=== PATIENT | male | born 1960 | race Caucasian/White ===

== ENCOUNTER 2017-05-08 17:55 | Emergency (ER) | payer SELFPAY ==
[~2017-05-08] VITALS: Ht 177.8 cm; Wt 52.0 kg
[2017-05-08 18:00] VITALS: BP 120/75; PULSE 65; RESP 15; TEMP 98.4; O2SAT 95
--- NOTE | 2017-05-08 18:46 | PD ---
HPI . possible skin infection Chief Complaint: Skin Problem Time Seen by Provider: 18:46 Travel History International Travel<30 days: No Contact w/Intl Traveler<30days: No Traveled to known affect area: No History of Present Illness HPI 56-year-old male here with complaints of a possible skin infection to his right lower extremity. Patient says that he started off with a cut on his right hand that seems to be healing, however now he thinks that it's spreading to his lower extremities. He is homeless. He denies any fever or chills. He has no other complaints. He says that he has some older lady who was helping him clean these wounds daily. PFSH Past Medical History Asthma: No Cancer: No Cardiovascular Problems: Yes (CATH) Chest Pain: Yes COPD: No Cerebrovascular Accident: No Endocrine: No Genitourinary: No Immune Disorder: No Musculoskeletal: No Neurologic: No Psychiatric: No Reproductive: No Respiratory: No Migraines: No Seizures: No Sleep Apnea: No Past Surgical History Abdominal Surgery: No Cardiac Surgery: Yes (heart cath ) Ear Surgery: No Endocrine Surgery: No Eye Surgery: Yes (cataracts ) Genitourinary Surgery: No Gynecologic Surgery: No Oral Surgery: No Thoracic Surgery: No Other Surgery: Yes Social History Alcohol Use: Yes Tobacco Use: Yes Substance Use: Yes (ALCOHOL) Allergies-Medications (Allergen,Severity, Reaction): Coded Allergies: No Known Allergies (Unverified , 05/24/16) Reported Meds & Prescriptions Reported Meds & Active Scripts Active Bactrim DS (Sulfamethoxazole-Trimethoprim) 800-160 Mg Tab 1 Tab PO BID Review of Systems General / Constitutional: No: Fever Eyes: No: Visual changes HENT: No: Headaches Cardiovascular: No: Chest Pain or Discomfort Respiratory: No: Shortness of Breath Gastrointestinal: No: Abdominal Pain Genitourinary: No: Dysuria Musculoskeletal: No: Pain Skin: Positive Other (skin infection ), No Rash Neurologic: No: Weakness Psychiatric: No: Depression Endocrine: No: Polydipsia Hematologic/Lymphatic: No: Easy Bruising Physical Exam Narrative GENERAL: AAO x 3, disheveled appearance SKIN: Warm and dry. No visible rashes or bruising. right lateral leg with small 1 cm circular lesion with mild erythema, no drainage, but appears early cellulitis, also some scattered lesions that are crusting over. 2 cm laceration to palmar surface of right hand healing via secondary intention without evidence of infection HEAD: Normocephalic and atraumatic. EYES: No scleral icterus. No injection or drainage. ENT: No nasal drainage noted. Mucous membranes pink. Airway patent. NECK: Supple, trachea midline. No JVD. CARDIOVASCULAR: Regular rate and rhythm without murmurs, gallops, or rubs. RESPIRATORY: Breath sounds equal bilaterally. No accessory muscle use. No rhonchi or rales. GASTROINTESTINAL:visual inspection normal EXTREMITIES: No cyanosis or edema. BACK: No obvious deformity. NEURO: CN II-12 intact, medical social worker strength normal b/l, UE and LE 5/5, no focal deficits PSYCH: AAO x 3, normal affect. Data Data Last Documented VS Vital Signs Date Time Temp Pulse Resp B/P Pulse Ox O2 Delivery O2 Flow Rate FiO2 05/08/17 18:00 98.4 65 15 120/75 95 MDM Medical Decision Making Medical Screen Exam Complete: Yes Emergency Medical Condition: Yes Medical Record Reviewed: Yes Differential Diagnosis early cellulitis right lateral leg skin lesion, less likely abscess, skin excoriation Narrative Course 56-year-old male here with a small skin lesion to his right lateral leg that appears infected. This is early cellulitis. There is no abscess formation. There are multiple healing excoriations. I advised him to try a course of Bactrim. I recommend keeping the area clean with soap and water daily. He'll continue to receive assistance from a friend for generalized wound care. Discussed signs of worsening infection when to return to the ED. Patient verbalized understanding of instructions, questions were answered, and thanked me for their care. I advised them if their condition worsens, please return to the nearest emergency room for further care. Diagnosis Primary Impression: Skin lesion, infected Referrals: [facility] Patient Instructions: General Instructions Additional Instructions: Keep area clean and dry. Watch for signs of infection: fever, redness, swelling, warmth, pus or drainage , red streaks around the cut, and increased pain from the area. Please return to emergency department if your symptoms return or worsen. Follow up with your primary care provider. Take medications as prescribed. Med/Other Pt SpecificInfo: Prescription(s) given Scripts Sulfamethoxazole-Trimethoprim (Bactrim DS)800-160 Mg Tab1 Tab PO BID #20 TAB Prov:Kocisko,Slava J. MD 05/08/17 Disposition: 01 DISCHARGE HOME Condition: Stable Marsha Durand May 08, 2017 18:46
[2017-05-08] MEDS ORDERED: BACT800T5 PO (18:50)
[2017-05-09] MEDS ORDERED: ULTR50TA5 PO (14:02)
== END 2017-05-08 19:46 | disposition home or self-care (01) ==
LOC: NEPD 17:55
DX: L98.9 Disorder of the skin and subcutaneous tissue, unspecified (principal); Z59.0 Homelessness; Z72.0 Tobacco use
CPT/HCPCS: 99283

== ENCOUNTER 2017-05-09 12:05 | Emergency (ER) | payer SELFPAY ==
[~2017-05-09 12:05] MED LIST: BACT800T5 PO
[2017-05-09 12:56] LABS: AUTOMATED NEUTROPHIL # 3.8 TH/MM3 (1.8-7.7); BASOPHIL % 0.8 % (0.0-2.0); EOSINOPHIL # 0.1 TH/MM3 (0-0.4); EOSINOPHIL % 2.4 % (0.0-4.0); HEMATOCRIT 36.6 % (39.0-51.0); HEMO FLAGS DIFF FINAL; LYMPHOCYTE # 1.3 TH/MM3 (1.0-4.8); MEAN CELL VOLUME 92.7 FL (80.0-100.0); MEAN CORPUSCULAR HEMOGLOBIN 32.5 PG (27.0-34.0); MEAN CORPUSCULAR HGB CONC 35.1 % (32.0-36.0); MONO % 12.2 % (0.0-8.0); NEUT % 62.6 % (16.0-70.0); PLATELET COUNT 255 TH/MM3 (150-450); RED BLOOD COUNT 3.94 MIL/MM3 (4.50-5.90); RED CELL DISTRIBUTION WIDTH 13.1 % (11.6-17.2); WHITE BLOOD COUNT 6.1 TH/MM3 (4.0-11.0)
[2017-05-09 13:03] LABS: ALKALINE PHOSPHATASE 68 U/L (45-117); ALT (GPT) 42 U/L (12-78); ANION GAP 7 MEQ/L (5-15); AST (GOT) 51 U/L (15-37); BICARBONATE 25.8 MEQ/L (21.0-32.0); BLOOD UREA NITROGEN 8 MG/DL (7-18); CHLORIDE 107 MEQ/L (98-107); GLOMERULAR FILTRATION RATE 109 ML/MIN (>89); SODIUM (NA) 140 MEQ/L (136-145); TOTAL BILIRUBIN ADULT 0.3 MG/DL (0.2-1.0)
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
--- NOTE | 2017-05-09 13:21 | RADRPT ---
EXAM DATE/TIME: 05/09/2017 12:59 [facility] COMPARISON: No previous studies available for comparison. INDICATIONS : Chest pains and shortness of breath. MEDICAL HISTORY : None. SURGICAL HISTORY : Cardiac catheterization. ENCOUNTER: Initial ACUITY: 1 day PAIN SCORE: 7/10 LOCATION: Chest, midline. FINDINGS: A single view of the chest demonstrates the lungs to be symmetrically aerated without evidence of mas s, infiltrate or effusion. The cardiomediastinal contours are unremarkable. Osseous structures are intact. CONCLUSION: No acute disease. Issa Scanlon MD on May 09, 2017 at 13:20 Board Certified Radiologist. This report was verified electronically.
[2017-05-09] MEDS ORDERED: ULTR50TA5 PO (14:02)
--- NOTE | 2017-05-09 21:48 | EKG ---
Date Performed: 05/09/2017 Time Performed: 12:15:26 PTAGE: 56 years EKG: Sinus rhythm POSSIBLE LEFT ATRIAL ENLARGEMENT BORDERLINE ECG PREVIOUS TRACING : 05/24/2016 01.40 No significant change from previous tracing noted. DOCTOR: Bay Sullivan Interpretating Date/Time 05/09/2017 21:46:14
== END 2017-05-09 19:15 | disposition home or self-care (01) ==
LOC: NEPD 12:05
DX: R07.89 Other chest pain (principal)
CPT/HCPCS: 71010; 80053; 84484; 85025; 93005; 99285

== ENCOUNTER 2017-06-19 01:49 | Emergency (ER) | payer SELFPAY ==
[~2017-06-19] VITALS: Ht 177.8 cm; Wt 52.0 kg
[~2017-06-19 01:49] MED LIST changes: +ULTR50TA5 PO
[2017-06-19 02:05] VITALS: BP 125/84; PULSE 83; RESP 18; TEMP 98.2; O2SAT 98
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
[2017-06-19] MEDS ORDERED: DICL75TA PO (02:51)
[2017-06-19] MEDS ORDERED: ACETAMINOPHEN/HYDROcodone 325 MG/5 MG TAB PO ONE (03:00)
[2017-06-19] MEDS ORDERED: IBUPROFEN 600 MG TAB PO ONE (03:00)
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
== END 2017-06-19 03:53 | disposition home or self-care (01) ==
LOC: NEPD 01:49
DX: S22.32XA Fracture of one rib, left side, initial encounter for closed fracture (principal); M50.322 Other cervical disc degeneration at C5-C6 level; M50.323 Other cervical disc degeneration at C6-C7 level; R06.02 Shortness of breath; Y04.2XXA Assault by strike against or bumped into by another person, initial encounter; Z72.0 Tobacco use; Z79.899 Other long term (current) drug therapy
CPT/HCPCS: 70450; 71101; 72125; 99285

== ENCOUNTER 2018-01-19 19:01 | Emergency (ER) | payer OTHER ==
[~2018-01-19 19:01] MED LIST changes: +DICL75TA PO; +TRAM50 PO; -ULTR50TA5 PO
[2018-01-19 19:10] VITALS: BP 138/84; PULSE 90; RESP 14; TEMP 98.4; O2SAT 99
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
[2018-01-19] MEDS ORDERED: IBUPROFEN 800 MG TAB PO ONE (20:15)
--- NOTE | 2018-01-19 21:07 | RADRPT ---
EXAM DATE/TIME: 01/19/2018 20:58 [facility] COMPARISON: CT BRAIN W/O CONTRAST, June 19, 2017, 2:38. INDICATIONS : Cephalgia. RADIATION DOSE: 56.35 CTDIvol (mGy) MEDICAL HISTORY : None SURGICAL HISTORY : None. ENCOUNTER: Initial ACUITY: 1 day PAIN SCALE: 5/10 LOCATION: cranial TECHNIQUE: Multiple contiguous axial images were obtained of the head. Using automated exposure control and adj ustment of the mA and/or kV according to patient size, radiation dose was kept as low as reasonably a chievable to obtain optimal diagnostic quality images. DICOM format image data is available electro nically for review and comparison. FINDINGS: CEREBRUM: The ventricles are normal for age. No evidence of midline shift, mass lesion, hemorrhage or acute in farction. No extra-axial fluid collections are seen. POSTERIOR FOSSA: The cerebellum and brainstem are intact. The 4th ventricle is midline. The cerebellopontine angle i s unremarkable. EXTRACRANIAL: The visualized portion of the orbits is intact. SKULL: The calvaria is intact. No evidence of skull fracture. CONCLUSION: Unremarkable CT brain. Issa Scanlon MD on January 19, 2018 at 21:04 Board Certified Radiologist. This report was verified electronically.
== END 2018-01-19 23:11 | disposition home or self-care (01) ==
LOC: NEPD 19:01
DX: F10.129 Alcohol abuse with intoxication, unspecified (principal); F17.200 Nicotine dependence, unspecified, uncomplicated; R51 Headache; Y90.7 Blood alcohol level of 200-239 mg/100 ml
CPT/HCPCS: 70450; 80307; 99283

== ENCOUNTER 2018-04-25 06:16 | Inpatient (IN) ==
[2018-04-25] MEDS ORDERED: Sod Chloride 0.9% Inj 1,000 ML IV.SIG ONE ×2 (08:02→10:58)
--- NOTE | 2018-04-25 08:10 | ED ---
HPI General Chief Complaint: Dizziness Stated Complaint: vomiting/dizziness/falling Time Seen by Provider: 04/25/18 07:49 History of Present Illness HPI Narrative: Patient presents to the emergency department complaining of dizziness. Dates that he was seen last night in the ER for nausea, vomiting, diarrhea. States that after discharge he was outside and syncopized while he was in hospital grounds. Ports dizziness for 2 days. Has vomiting after the dizziness. Dizziness is described as being at rest on exertion, with it being worse with moving around. He reports subjective fever, chills, nausea, vomiting , diarrhea (20 episodes for the past 2-3 days, nonbloody), chest pain (left side that started this morning, sharp, intermittent, seconds in duration, similar pain in the past but unknown diagnosis), cough, shortness of breath describes been intermittent with exertion, right upper quadrant abdominal pain ( intermittent, 3 days), numbness and tingling the right arm which is resolved. He reports right-sided headache, intermittent, 2 hours in duration, unknown alleviating factors, aggravated by movement and vomiting. Also reports blurry vision bilaterally. Related Data Previous Rx's Medication Instructions Recorded ondansetron [Zofran ODT] 4 mg PO DAILY PRN 4 Days #10 tab 04/25/18 Allergies Allergy/AdvReac Type Severity Reaction Status Date / Time No Known Allergies Unknown Uncoded 03/19/18 16:11 Review of Systems ROS Unobtainable All other systems reviewed negative except as stated in HPI [facility] Social History Social History Second Hand Smoke Exposure: Yes Smoking Status: Current every day smoker Tobacco Type: Cigarettes How Often Do You Have a Drink Containing Alcohol: 4 or more times a week Recent Travel in [facility] within the Last 8 Weeks: No Recent Out of Country Travel within the Last 8 Weeks: No Exam Narrative Exam Narrative: GENERAL: Vomiting on exam. SKIN: Focused skin assessment warm/dry. HEAD: Atraumatic. Normocephalic. EYES: Pupils equal and round. No scleral icterus. No injection or drainage. ENT: No nasal bleeding or discharge. Mucous membranes dry. NECK: Trachea midline. No JVD. CARDIOVASCULAR: Regular rate and rhythm. + murmur appreciated. RESPIRATORY: No accessory muscle use. Clear to auscultation. Breath sounds equal bilaterally. GASTROINTESTINAL: Abdomen soft, non-tender, nondistended. Right CVA tenderness. MUSCULOSKELETAL: No obvious deformities. No clubbing. No cyanosis. No edema. NEUROLOGICAL: Awake and alert. No obvious cranial nerve deficits. Motor grossly within normal limits. Normal speech. PSYCHIATRIC: Appropriate mood and affect; insight and judgment normal. Course Initial Documented Vital Signs Temperature 97.7 F 04/25/18 07:18 Pulse Rate 73 04/25/18 07:18 Respiratory Rate 16 04/25/18 07:18 Blood Pressure 124/68 04/25/18 07:18 Pulse Oximetry 98 04/25/18 07:18 Last Documented Vital Signs Temperature 97.7 F 04/25/18 07:18 Pulse Rate 78 04/25/18 10:42 Respiratory Rate 17 04/25/18 10:42 Blood Pressure 133/86 04/25/18 10:42 Pulse Oximetry 96 04/25/18 10:42 Medical Decision Making MDM Narrative Medical decision making narrative: Patient presents to the emergency department with dizziness and multiple medical complaints. Patient placed on alarm security or surveillance monitor, continuous pulse ox, and IV access obtained. Head CT, chest x-ray, EKG , and labs ordered. Additionally orthostatic blood pressures checked, and patient given 1 L IV normal saline 4 mg Zofran ODT. CXR: CONCLUSION: 1. Minimal atelectatic changes above the left hemidiaphragm.2. Subacute to chronic appearing fractures through the lateral aspect of the left sixth and seventh ribs with callus formation.3. Otherwise negative. No acute cardiopulmonary process. Head CT: CONCLUSION:Negative exam. No change from prior. 1100: Given another liter IV NS, meclizine 25mg po. Labs: Elevated AST and direct bili, decreased hemoglobin and hematocrit Differential Diagnosis Differential Diagnosis: CVA, TIA, ICH, orthostasis, anemia, ACS, electrolyte abnormality, infectious process (UTI, PNA), syncope Lab Data Result diagrams: 04/25/18 08:40 04/25/18 08:40 Lab Results 04/25/18 04/25/18 04/25/18 Range/Units 08:40 08:40 08:40 WBC 9.8 (4.0-11.0) th/mm3 RBC 3.95 L (4.50-5.90) mil/mm3 Hgb 12.5 L (13.0-17.0) gm/dL Hct 35.7 L (39.0-51.0) % MCV 90.3 (80.0-100.0) fL MCH 31.6 (27.0-34.0) pg MCHC 35.0 (32.0-36.0) % RDW 13.2 (11.6-17.2) % Plt Count 192 (150-450) th/mm3 MPV 7.8 (7.0-11.0) fL Neut % (Auto) 90.5 H (16.0-70.0) % Lymph % (Auto) 3.6 L (9.0-44.0) % Howell % (Auto) 5.8 (0.0-8.0) % Eos % (Auto) 0.0 (0.0-4.0) % Baso % (Auto) 0.1 (0.0-2.0) % Neut # (Auto) 8.9 H (1.8-7.7) th/mm3 Lymph # (Auto) 0.4 L (1.0-4.8) th/mm3 Howell # (Auto) 0.6 (0.0-0.9) th/mm3 Eos # (Auto) 0.0 (0.0-0.4) th/mm3 Baso # (Auto) 0.0 (0.0-0.2) th/mm3 WBC Differential . Differential Comment Auto diff final PT 10.7 (9.8-11.6) sec INR 1.1 Ratio APTT (24.3-30.1) sec Sodium 142 (136-145) meq/L Potassium 3.6 (3.5-5.1) meq/L Chloride 109 H (98-107) meq/L Carbon Dioxide 22.5 (21.0-32.0) meq/L Anion Gap 11 (5-15) meq/L BUN 10 (7-18) mg/dL Creatinine 0.80 (0.60-1.30) mg/dL Estimated GFR Greater than 89 (>89) mL/min Random Glucose 144 H (74-106) mg/dL Calcium 8.0 L (8.5-10.1) mg/dL Magnesium (1.5-2.5) mg/dL Total Bilirubin 0.7 (0.2-1.0) mg/dL AST 54 H (15-37) U/L ALT 56 (12-78) U/L Alkaline Phosphatase 62 (45-117) U/L Total Creatine Kinase 116 (39-308) U/L CK-MB (CK-2) 1.4 (0.5-3.6) ng/mL Troponin I Less than 0.02 L (0.02-0.05) ng/mL Total Protein 7.1 (6.4-8.2) g/dL Albumin 3.2 L (3.4-5.0) g/dL Lipase (73-393) U/L 04/25/18 04/25/18 04/25/18 Range/Units 08:40 08:40 08:40 WBC (4.0-11.0) th/mm3 RBC (4.50-5.90) mil/mm3 Hgb (13.0-17.0) gm/dL Hct (39.0-51.0) % MCV (80.0-100.0) fL MCH (27.0-34.0) pg MCHC (32.0-36.0) % RDW (11.6-17.2) % Plt Count (150-450) th/mm3 MPV (7.0-11.0) fL Neut % (Auto) (16.0-70.0) % Lymph % (Auto) (9.0-44.0) % Howell % (Auto) (0.0-8.0) % Eos % (Auto) (0.0-4.0) % Baso % (Auto) (0.0-2.0) % Neut # (Auto) (1.8-7.7) th/mm3 Lymph # (Auto) (1.0-4.8) th/mm3 Howell # (Auto) (0.0-0.9) th/mm3 Eos # (Auto) (0.0-0.4) th/mm3 Baso # (Auto) (0.0-0.2) th/mm3 WBC Differential Differential Comment PT (9.8-11.6) sec INR Ratio APTT 26.4 (24.3-30.1) sec Sodium (136-145) meq/L Potassium (3.5-5.1) meq/L Chloride (98-107) meq/L Carbon Dioxide (21.0-32.0) meq/L Anion Gap (5-15) meq/L BUN (7-18) mg/dL Creatinine (0.60-1.30) mg/dL Estimated GFR (>89) mL/min Random Glucose (74-106) mg/dL Calcium (8.5-10.1) mg/dL Magnesium 1.6 (1.5-2.5) mg/dL Total Bilirubin (0.2-1.0) mg/dL AST (15-37) U/L ALT (12-78) U/L Alkaline Phosphatase (45-117) U/L Total Creatine Kinase Cancelled (39-308) U/L CK-MB (CK-2) (0.5-3.6) ng/mL Troponin I (0.02-0.05) ng/mL Total Protein (6.4-8.2) g/dL Albumin (3.4-5.0) g/dL Lipase 54 L (73-393) U/L Imaging Data Radiologist's impression: Chest X-Ray 04/25/18 08:02 CONCLUSION: 1. Minimal atelectatic changes above the left hemidiaphragm. 2. Subacute to chronic appearing fractures through the lateral aspect of the left sixth and seventh ribs with callus formation. 3. Otherwise negative. No acute cardiopulmonary process Head CT 04/25/18 08:02 CONCLUSION: Negative exam. No change from prior. Discharge Plan Discharge Disposition Patient Disposition: 30 Still Patient Discharge Condition Condition: Stable Discharge Details Diagnosis: Dizziness, Chest pain, Increased nausea and vomiting Physicians Team ED Provider: Yissel Vee Primary Care Provider: UNKNOWN, Attending Provider: Venkat Carter Status ED Status: Admitted Observation Patient
--- NOTE | 2018-04-25 08:45 | CT ---
EXAM DATE: 04/25/2018 8:26 AM EDT AGE/SEX: 57 years / Male INDICATIONS: Dizziness. CLINICAL DATA: This is the patient's initial encounter. Patient reports that signs and symptoms have been present for 1 day and indicates a pain score of 2/10. MEDICAL/SURGICAL HISTORY: None. None. RADIATION DOSE: 39.94 CTDI (mGy) COMPARISON: [facility] [place], CT BRAIN W/O CONTRAST, 01/19/2018. . TECHNIQUE: CT of the head without contrast. Using automated exposure control and adjustment of the mA and/or kV according to patient size, radiation dose was kept as low as reasonably achievable to ob tain optimal diagnostic quality images. DICOM format image data is available electronically for revi ew and comparison. FINDINGS: Cerebrum: The ventricles are normal for age. No evidence of midline shift, mass lesion, hemorrhage or acute infarction. No extraaxial fluid collections are seen. Posterior Fossa: The cerebellum and brainstem are intact. The 4th ventricle is midline. The cerebe llopontine angle is unremarkable. Extracranial: The visualized portion of the orbits is intact. Skull: The calvaria is intact. No evidence of skull fracture. CONCLUSION: Negative exam. No change from prior. Electronically signed by: Will Casas MD 04/25/2018 8:43 AM EDT
--- NOTE | 2018-04-25 08:52 | XR ---
EXAM DATE: 04/25/2018 8:43 AM EDT AGE/SEX: 57 years / Male INDICATIONS: Vomiting, dizziness and falling. CLINICAL DATA: This is the patient's sequela encounter. Patient reports that signs and symptoms have been present for 2 days and indicates a pain score of 10/10. MEDICAL/SURGICAL HISTORY: None. . Heart cath COMPARISON: [facility], RIBS LEFT(W PA CXR MIN 3VWS), 06/19/2017. . FINDINGS: A single AP view of the chest demonstrates the lungs to be symmetrically aerated without evidence of mass, infiltrate or effusion. Minimal atelectatic changes above the left hemidiaphragm. The cardiome diastinal contours are unremarkable. There appears to be a lateral fracture with callus formation jana und the left sixth and seventh ribs. CONCLUSION: 1. Minimal atelectatic changes above the left hemidiaphragm. 2. Subacute to chronic appearing fractures through the lateral aspect of the left sixth and seventh ribs with callus formation. 3. Otherwise negative. No acute cardiopulmonary process Electronically signed by: Will Casas MD 04/25/2018 8:51 AM EDT
[2018-04-25 08:55] LABS: Baso % (Auto) 0.1 % (0.0-2.0); Hematocrit 35.7 % (39.0-51.0); Hemoglobin 12.5 gm/dL (13.0-17.0); Lymph # (Auto) 0.4 th/mm3 (1.0-4.8); Lymph % (Auto) 3.6 % (9.0-44.0); Mean Corpuscular Hemoglobin 31.6 pg (27.0-34.0); Mean Corpuscular Volume 90.3 fL (80.0-100.0); Mean Platelet Volume 7.8 fL (7.0-11.0); Mono # (Auto) 0.6 th/mm3 (0.0-0.9); Mono % (Auto) 5.8 % (0.0-8.0); Neut # (Auto) 8.9 th/mm3 (1.8-7.7); Neut % (Auto) 90.5 % (16.0-70.0); Platelet Count 192 th/mm3 (150-450); Red Blood Count 3.95 mil/mm3 (4.50-5.90); Red Cell Distribution Width 13.2 % (11.6-17.2); White Blood Count 9.8 th/mm3 (4.0-11.0)
[2018-04-25 09:03] LABS: INR 1.1 Ratio; Prothrombin Time 10.7 sec (9.8-11.6)
[2018-04-25 09:14] LABS: Alanine Aminotransferase 56 U/L (12-78); Albumin 3.2 g/dL (3.4-5.0); Anion Gap 11 meq/L (5-15); Aspartate Aminotransferase 54 U/L (15-37); Blood Urea Nitrogen 10 mg/dL (7-18); Carbon Dioxide 22.5 meq/L (21.0-32.0); Chloride 109 meq/L (98-107); Glomerular Filtration Rate Greater Than 89 mL/min (>89); Glucose,Random 144 mg/dL (74-106); Potassium 3.6 meq/L (3.5-5.1); Sodium 142 meq/L (136-145)
[2018-04-25 09:19] LABS: Alkaline Phosphatase 62 U/L (45-117); Creatine Kinase 116 U/L (39-308); Total Protein 7.1 g/dL (6.4-8.2)
[2018-04-25 09:30] LABS: Creatine Kinase MB 1.4 ng/mL (0.5-3.6)
[2018-04-25] MEDS ORDERED: Bisacodyl 10 MG Supp RECTAL PRN (11:14)
[2018-04-25] MEDS ORDERED: Temazepam 15 MG Capsule PO PRN (11:14)
[2018-04-25] MEDS ORDERED: Mag Sulf 1 gm/100 ml Premix 100 ML IV.SIG SCH (11:18)
[2018-04-25 12:06] LABS: Bilirubin,Urine Negative (Negative); Clarity,Urine Clear (Clear); Color,Urine Yellow (Yellw/Straw); Glucose,Urine (UA) Negative (Negative); Leukocyte Esterase,Urine Negative (Negative); Nitrite,Urine Negative (Negative); PH,Urine 5.5 (5.0-8.5); Urobilinogen,Urine 0.2 mg/dL (Less than 2)
[2018-04-25 12:08] LABS: Specific Gravity,Urine 1.019 (1.002-1.035)
[2018-04-25] MEDS ORDERED: Haloperidol Inj 5 MG/ML Ampul IV.PUSH PRN (13:06)
[2018-04-25] MEDS ORDERED: LORazepam 1 MG Tablet PO PRN (13:06)
[2018-04-25 13:18] LABS: RBC,Urine 0-3 /hpf (0-3)
[2018-04-25 13:19] LABS: Amorphous Sediment,Urine Rare /hpf; WBC,Urine 0-5 /hpf (0-5)
[2018-04-25 14:02] LABS: Amphetamine Screen,Urine Neg (Neg); Barbiturate Screen,Urine Neg (Neg); Cannabinoid Screen,Urine Neg (Neg); Cocaine Screen,Urine Neg (Neg)
[2018-04-25 14:06] LABS: Opiate Screen,Urine Neg (Neg)
--- NOTE | 2018-04-25 14:23 | P.HP ---
History of Present Illness Primary Care Physician: UNKNOWN Chief Complaint: nausea/vomiting/diarrhea History of Present Illness: 57-year-old homeless male with history of alcohol abuse, tobacco use, presents with a 5 day history of intractable nausea/vomiting/diarrhea and a 2 day history of dizziness and falls. Patient reports that he was recently incarcerated until April 12. He states while in snf he was taking a lot of Motrin, at least 3 tablets a day. He was doing well after he was released from snf on 04/12 until last 04/21, he started to develop nausea and vomiting. He reports at least 5 episodes of vomiting daily, emesis described as non-bloody and bilious. He then developed watery nonbloody diarrhea with 5 10 episodes daily. He reports subjective fevers, chills, and sweats. He reports mild periumbilical nonradiating crampy abdominal pain. He has been unable to keep down any liquids or foods. Two days ago he started to develop intractable dizziness with a global headache and blurred vision. He states he has fallen multiple times because of the dizziness. He got a ride to the ER last night, and was discharged home. He states shortly after he was released from the hospital, he suffered a syncopal event in the parking lot. He states he remembers feeling very dizzy and then fell to the ground. He believes he was only out for a few seconds. The patient admits to chronic alcohol abuse. He reports drinking at least two 25 ounce beers daily, and maybe more on certain days. He states he was treated for alcohol withdrawal while he was in snf. He then started drinking again after he was released, but now has not had a drink in 4 days. The patient admits to feeling slightly tremulous. He denies any other medical complaints including no chest pain, palpitations, shortness of breath, or urinary complaints. Review of Systems All other systems reviewed negative except as stated in HPI PMFSH - History History Provided By: Patient - Medical History Medical History: Medical History (Last Updated 04/25/18 @ 14:10 by Louann Lagos) Alcohol withdrawal seizure Fracture of right orbit - Surgical History Surgical History: Surgical History (Last Updated 04/25/18 @ 14:10 by Louann Lagos) History of facial surgery Hx of cardiac catheterization - Family History Family History: Family History (Last Updated 04/25/18 @ 14:10 by Louann Lagos) Father Alcoholism - Tobacco History Second Hand Smoke Exposure: Yes Tobacco Use In Past 30 Days: Yes Smoking Status: Current every day smoker Tobacco Type: Cigarettes Packs Per Day: 1 - Alcohol History How Often Do You Have a Drink Containing Alcohol: 4 or more times a week - Travel History Recent Travel in the [place] Within the Last 8 Weeks: No Recent Travel Out of the Country Within the Last 8 Weeks: No - Immunization History Tetanus Immunization: Unsure Medications and Allergies Active Medications: Active Medications Acetaminophen (Tylenol) 650 mg PO Q4H PRN PRN Reason: Headache, fever, pain 1-5 Al Hydroxide/Mg Hydroxide (Milk Of Magnesia Liq) 30 ml PO Q12H PRN PRN Reason: Mild Constipation Bisacodyl (Dulcolax Supp) 10 mg RECTAL DAILY PRN PRN Reason: SEVERE CONSITIPATION Flumazenil (Romazecon Inj) 0.2 mg IV.PUSH Q1M PRN PRN Reason: OVERSEDATION Folic Acid (Folic Acid) 1 mg PO DAILY [facility] Stop: 05/01/18 08:59 Haloperidol Lactate (Haldol Inj) 1 mg IV.PUSH Q15M PRN PRN Reason: for severe agitation Lactated Ringer's (Lr 1000 Ml Inj) 1,000 mls @ 150 mls/hr IV.CONT .Q6H40M DANYEL Stop: 04/27/18 11:14 Magnesium Sulfate/Dextrose (Magnesium Sulfate 1 Gm/D5w 100 Ml Premix) 100 mls @ 100 mls/hr IV.SIG Q1H [facility]ANYEL Stop: 04/25/18 13:59 Thiamine HCl 100 mg/ Sodium (Chloride) 101 mls @ 100 mls/hr IV.SIG DAILY [facility] Stop: 04/28/18 13:14 Lactulose (Lactulose Liq) 30 ml PO DAILY PRN PRN Reason: SEVERE CONSITIPATION Lorazepam (Ativan) 1 mg PO Q4H PRN PRN Reason: for CIWA 8-10 Lorazepam (Ativan) 2 mg PO Q2H PRN PRN Reason: for CIWA 11-14 Lorazepam (Ativan Inj) 2 mg IV.PUSH Q2H PRN PRN Reason: for CIWA 11-14 Lorazepam (Ativan Inj) 2 mg IV.PUSH Q1H PRN PRN Reason: for CIWA 15-20 Lorazepam (Ativan Inj) 2 mg IV.PUSH Q15M PRN PRN Reason: for CIWA > 20 Lorazepam (Ativan Inj) 1 mg IV.PUSH Q4H PRN PRN Reason: for CIWA 8-10 Metoclopramide HCl (Reglan Inj) 10 mg IV.PUSH Q8H PRN; Protocol PRN Reason: nausea/vomiting Multivitamins/Minerals (Theragran-M) 1 tab PO DAILY [facility] Stop: 05/01/18 08:59 Nicotine (Habitrol 21 Mg Patch.24 Hr) 1 patch T-DERMAL DAILY [facility]EL Patch Removal (Remove Old Patch) 1 each T-DERMAL HS [facility] Sennosides (Senokot) 17.2 mg PO Q12H PRN PRN Reason: Moderate Constipation Temazepam (Restoril) 15 mg PO HS PRN PRN Reason: INSOMNIA Thiamine HCl (Vitamin B1) 100 mg PO DAILY [facility] Allergies Allergy/AdvReac Type Severity Reaction Status Date / Time No Known Allergies Unknown Uncoded 03/19/18 16:11 Exam Vital signs: Vital Signs 04/25/18 07:18 04/25/18 08:44 04/25/18 10:42 Temperature 97.7 F Pulse Rate 73 62 78 Respiratory Rate 16 17 17 Blood Pressure 124/68 131/77 133/86 Pulse Oximetry 98 100 96 04/25/18 12:15 04/25/18 12:26 Temperature 97.6 F Pulse Rate 74 65 Respiratory Rate 17 18 Blood Pressure 142/63 H 157/79 H Pulse Oximetry 98 100 Intake & Output 04/24/18 04/25/18 04/25/18 18:59 06:59 18:59 Weight 52.163 kg Narrative: GENERAL: Thin middle-aged male patient in NAD. Slightly tremulous. SKIN: Warm and dry. No rash. HEAD: Normocephalic. Atraumatic. EYES: Pupils equal and round. No scleral icterus. No injection or drainage. ENT: No nasal bleeding or discharge. Mucous membranes dry. NECK: Supple. Trachea midline. CARDIOVASCULAR: Regular rate and rhythm. No murmur appreciated. RESPIRATORY: No accessory muscle use. Clear to auscultation. Breath sounds equal bilaterally. GASTROINTESTINAL: Abdomen soft, non-tender, nondistended. Normoactive bowel sounds x4. MUSCULOSKELETAL: No obvious deformities. Extremities without clubbing, cyanosis , or edema. NEUROLOGICAL: Awake and alert. No obvious cranial nerve deficits. Motor grossly within normal limits. Normal speech. PSYCHIATRIC: Appropriate mood and affect; insight and judgment normal. Results - Labs CBC & Chem 7: 04/25/18 08:40 04/25/18 08:40 Labs: Laboratory Results - last 24 hr 04/25/18 04/25/18 04/25/18 08:40 08:40 08:40 WBC 9.8 RBC 3.95 L Hgb 12.5 L Hct 35.7 L MCV 90.3 MCH 31.6 MCHC 35.0 RDW 13.2 Plt Count 192 MPV 7.8 Neut % (Auto) 90.5 H Lymph % (Auto) 3.6 L [place] % (Auto) 5.8 Eos % (Auto) 0.0 Baso % (Auto) 0.1 Neut # (Auto) 8.9 H Lymph # (Auto) 0.4 L [place] # (Auto) 0.6 Eos # (Auto) 0.0 Baso # (Auto) 0.0 WBC Differential . Differential Comment Auto diff final PT 10.7 INR 1.1 APTT Sodium 142 Potassium 3.6 Chloride 109 H Carbon Dioxide 22.5 Anion Gap 11 BUN 10 Creatinine 0.80 Estimated GFR Greater than 89 Random Glucose 144 H Calcium 8.0 L Magnesium Total Bilirubin 0.7 AST 54 H ALT 56 Alkaline Phosphatase 62 Total Creatine Kinase 116 CK-MB (CK-2) 1.4 Troponin I Less than 0.02 L Total Protein 7.1 Albumin 3.2 L Lipase Ur Collection Type Urine Color Urine Clarity Urine pH Ur Specific [place] Urine Protein Urine Glucose (UA) Urine Ketones Urine Occult Blood Urine Nitrate Urine Bilirubin Urine Urobilinogen Ur Leukocyte Esterase Urine RBC Urine WBC Amorphous Sediment Micro UA Comment Urine Culture Comments 04/25/18 04/25/18 04/25/18 08:40 08:40 08:40 WBC RBC Hgb Hct MCV MCH MCHC RDW Plt Count MPV Neut % (Auto) Lymph % (Auto) [place] % (Auto) Eos % (Auto) Baso % (Auto) Neut # (Auto) Lymph # (Auto) [place] # (Auto) Eos # (Auto) Baso # (Auto) WBC Differential Differential Comment PT INR APTT 26.4 Sodium Potassium Chloride Carbon Dioxide Anion Gap BUN Creatinine Estimated GFR Random Glucose Calcium Magnesium 1.6 Total Bilirubin AST ALT Alkaline Phosphatase Total Creatine Kinase Cancelled CK-MB (CK-2) Troponin I Total Protein Albumin Lipase 54 L Ur Collection Type Urine Color Urine Clarity Urine pH Ur Specific [place] Urine Protein Urine Glucose (UA) Urine Ketones Urine Occult Blood Urine Nitrate Urine Bilirubin Urine Urobilinogen Ur Leukocyte Esterase Urine RBC Urine WBC Amorphous Sediment Micro UA Comment Urine Culture Comments 04/25/18 11:42 WBC RBC Hgb Hct MCV MCH MCHC RDW Plt Count MPV Neut % (Auto) Lymph % (Auto) [place] % (Auto) Eos % (Auto) Baso % (Auto) Neut # (Auto) Lymph # (Auto) [place] # (Auto) Eos # (Auto) Baso # (Auto) WBC Differential Differential Comment PT INR APTT Sodium Potassium Chloride Carbon Dioxide Anion Gap BUN Creatinine Estimated GFR Random Glucose Calcium Magnesium Total Bilirubin AST ALT Alkaline Phosphatase Total Creatine Kinase CK-MB (CK-2) Troponin I Total Protein Albumin Lipase Ur Collection Type Random Urine Color Yellow Urine Clarity Clear Urine pH 5.5 Ur Specific [place] 1.019 Urine Protein Trace Urine Glucose (UA) Negative Urine Ketones Negative Urine Occult Blood Trace Urine Nitrate Negative Urine Bilirubin Negative Urine Urobilinogen 0.2 Ur Leukocyte Esterase Negative Urine RBC 0-3 Urine WBC 0-5 Amorphous Sediment Rare H Micro UA Comment Culture not ind Urine Culture Comments Culture not ind - Imaging Impressions Chest X-Ray 04/25/18 08:02 CONCLUSION: 1. Minimal atelectatic changes above the left hemidiaphragm. 2. Subacute to chronic appearing fractures through the lateral aspect of the left sixth and seventh ribs with callus formation. 3. Otherwise negative. No acute cardiopulmonary process Head CT 04/25/18 08:02 CONCLUSION: Negative exam. No change from prior. Caprini VTE Risk Assessment Caprini VTE Risk Assessment: No/Low Risk (score <= 1) Caprini Risk Assessment Model: Point Value = 1 Point Value = 2 Point Value = 3 Point Value = 5 Age 41-60 Minor surgery BMI > 25 kg/m2 Swollen legs Varicose veins or History of unexplained or recurrent spontaneous Oral contraceptives or hormone replacement Sepsis (< 1 month) Serious lung disease, including pneumonia (< 1 month) Abnormal pulmonary function Acute myocardial infarction Congestive heart failure (< 1 month) History of inflammatory bowel disease Medical patient at bed rest Age 61-74 Arthroscopic surgery Major open surgery (> 45 min) Laparoscopic surgery (> 45 min) Malignancy Confined to bed (> 72 hours) Immobilizing plaster cast Central venous access Age >= 75 History of VTE Family history of VTE Factor V Leiden Prothrombin [id number] Lupus anticoagulant Anticardiolipin antibodies Elevated serum homocysteine Heparin-induced thrombocytopenia Other congenital or acquired thrombophilia Stroke (< 1 month) Elective arthroplasty Hip, pelvis, or leg fracture Acute spinal cord injury (< 1 month) Prophylaxis Regimen: Total Risk Factor Score Risk Level Prophylaxis Regimen 0-1 Low Early ambulation 2 Moderate Order ONE of the following: *Sequential Compression Device (SCD) *Heparin 5000 units SQ BID 3-4 Higher Order ONE of the following medications: *Heparin 5000 units SQ TID *Enoxaparin/Lovenox 40 mg SQ daily (WT < 150 kg, CrCl > 30 mL/min) *Enoxaparin/Lovenox 30 mg SQ daily (WT < 150 kg, CrCl > 10-29 mL/min) *Enoxaparin/Lovenox 30 mg SQ BID (WT < 150 kg, CrCl > 30 mL/min) AND/OR *Sequential Compression Device (SCD) 5 or more Highest Order ONE of the following medications: *Heparin 5000 units SQ TID (Preferred with Epidurals) *Enoxaparin/Lovenox 40 mg SQ daily (WT < 150 kg, CrCl > 30 mL/min) *Enoxaparin/Lovenox 30 mg SQ daily (WT < 150 kg, CrCl > 10-29 mL/min) *Enoxaparin/Lovenox 30 mg SQ BID (WT < 150 kg, CrCl > 30 mL/min) AND *Sequential Compression Device (SCD) Assessment and Plan - Plan 57-year-old homeless male with history of alcohol abuse, tobacco use, presents with a 5 day history of intractable nausea/vomiting/diarrhea and a 2 day history of dizziness and falls. Abdominal pain/nausea/vomiting/diarrhea: Suspect viral gastroenteritis. -Lipase and LFTs unremarkable -With ongoing symptoms, check abdominal CT -Check stool studies, C.diff -Check lactic acid -Monitor Is&Os -Supportive treatment with IVF, antiemetics, and pain control as needed -Liquid diet for now -Consider GI consult if no improvement of if CT abnormal (patient with hx of recent NSAID use) Dizziness/Syncope/Headache/Falls: suspect multifactorial with alcohol withdrawal and dehydration. -Give IVF hydration -Check orthostatics -monitor on telemetry -pain control as needed -consult PT Alcohol Withdrawal: last drink 4 days prior. -Counseled on cessation -CIWA protocol -thiamine/folate/MV -seizure precautions -Monitor Tobacco Use: patient smokes 1 PPD -counseled on cessation -nicotine patch DVT Prophylaxis: teds/SCDs Code Status: Full code
[2018-04-25] MEDS: Mag Sulf 1 gm/100 ml Premix 100 ML IV.SIG SCH ×2 (14:24→16:20)
[2018-04-25] MEDS ORDERED: Diatrizoate Meglum/Diatrizoate Sod Liq 9 ML UDC PO ONE (15:00)
[2018-04-25] MEDS: Thiamine Inj 100 MG in Sodium Chlor 0.9% Inj 100 ML IV.SIG SCH (18:27)
--- NOTE | 2018-04-25 23:44 | CT ---
EXAM DATE: 04/25/2018 11:32 PM EDT AGE/SEX: 57 years / Male INDICATIONS: Fell yesterday. Abdomen pain. CLINICAL DATA: This is the patient's initial encounter. Patient reports that signs and symptoms have been present for 1 day and indicates a pain score of 6/10. MEDICAL/SURGICAL HISTORY: . Alcohol abuse None. ORAL CONTRAST: Prescribed oral contrast ingested. RADIATION DOSE: 4.64 CTDI (mGy) COMPARISON: No prior exams available for comparison. TECHNIQUE: Multiple contiguous axial images were obtained through the abdomen and pelvis following b olus infusion of 96 ml Omnipaque 350 (iohexol) nonionic water-soluble contrast as a single exam dos e. Prescribed oral contrast ingested. Using automated exposure control and adjustment of the mA and/ or kV according to patient size, radiation dose was kept as low as reasonably achievable to obtain op timal diagnostic quality images. DICOM format image data is available electronically for review and comparison. FINDINGS: There are atelectatic changes at the lung bases, with mild left basilar infiltrate or atelectasis see n. There are calcified granulomas in the spleen noted. Mild hepatic steatosis. There are varices in t he perisplenic and gastrohepatic region. Small amount of free fluid is seen in the gallbladder fossa, perihepatic and infrahepatic region. There are bilateral inguinal hernias including a small fat-cont aining inguinal hernia on the left and a large inguinal hernia on the right containing distal ileum a nd large bowel at the level of the cecum which demonstrates bowel wall thickening. Urinary bladder is unremarkable. There is a small amount of free fluid in the pelvis. Atherosclerotic calcifications of the aorta and iliac vessels are noted. The osseous structures demonstrate a nonacute fracture of the left eighth and seventh lateral ribs. There are degenerative changes of the lumbar spine noted. CONCLUSION: 1. There is a large bowel containing right inguinal hernia which contains descending colon and cecum , as well as distal ileum. There is associated bowel wall thickening. 2. Hepatic steatosis, ascites, and upper abdominal varices identified. 3. Calcified splenic granulomas. Electronically signed by: Octavio Duncan MD 04/25/2018 11:42 PM EDT
--- NOTE | 2018-04-26 09:43 | P.PN ---
Subjective Interval history: Follow-up for nausea/vomiting/diarrhea/abdominal pain and dizziness with falls. Patient reports overall feeling slightly better today. He states he is still nauseous with 5 episodes of vomiting overnight. He also reports continued diarrhea, although improved. Reports diffuse periumbilical and lower abdominal cramping pain. He states his right inguinal hernia has been getting worse recently and causing more discomfort. Reports chills overnight, and documented fever 100.8 this morning. He states his dizziness is slightly improved, however still feels very weak with ambulation. Denies any chest pain or shortness of breath. Denies any other medical complaints at this time. Physical Exam Vital signs: Vital Signs 04/25/18 10:42 04/25/18 12:15 04/25/18 12:26 Temperature 97.6 F Pulse Rate 78 74 65 Respiratory Rate 17 17 18 Blood Pressure 133/86 142/63 H 157/79 H Pulse Oximetry 96 98 100 04/25/18 15:03 04/25/18 15:36 04/25/18 20:00 Temperature 98.7 F 98 F Pulse Rate 67 69 80 Respiratory Rate 16 20 Blood Pressure 124/78 153/90 H Pulse Oximetry 98 04/26/18 00:00 04/26/18 03:25 04/26/18 04:00 Temperature 98.6 F 98.3 F Pulse Rate 81 73 72 Respiratory Rate 17 17 Blood Pressure 121/69 113/60 Pulse Oximetry 98 99 04/26/18 08:00 Temperature 100.8 F H Pulse Rate 75 Respiratory Rate 16 Blood Pressure 111/58 L Pulse Oximetry 95 Intake & Output 04/25/18 04/26/18 04/26/18 18:59 06:59 18:59 Intake Total 700 / 700 1000 / 1000 Balance 700 / 700 1000 / 1000 Weight 52.163 kg Intake: IV 100 / 100 1000 / 1000 LR 1000 mL Inj 1,000 ML @ 150 1000 / 1000 mls/hr IV.CONT .Q6H40M DANYEL Rx#: [id number] Magnesium Sulfate 1 gm/D5W 100 100 / 100 ml Premix 100 ML @ 100 mls/hr IV.SIG Q1H DANYEL Rx#:[id number] Oral 600 / 600 Other: Date of Last Bowel Movement 04/25/18 Narrative: GENERAL: Well-nourished, well-developed middle aged male patient in [facility]. SKIN: Warm and dry. No rash. HEENT: Normocephalic. Atraumatic. Pupils equal and round. Mucous membranes pink and moist. NECK: Supple. Trachea midline. CARDIOVASCULAR: Regular rate and rhythm. No murmur appreciated. RESPIRATORY: No accessory muscle use. Clear to auscultation. Breath sounds equal bilaterally. GASTROINTESTINAL: Abdomen soft, non-tender, nondistended. Normoactive bowel sounds x4. Bulging right inguinal hernia containing bowel, tender to palpation. MUSCULOSKELETAL: No obvious deformities. Extremities without clubbing, cyanosis , or edema. NEUROLOGICAL: Awake and alert. No obvious cranial nerve deficits. Motor grossly within normal limits. Moving all extremities spontaneously. Normal speech. Results - Labs CBC & Chem 7: 04/25/18 08:40 04/25/18 08:40 Laboratory Results - last 24 hr 04/25/18 04/25/18 04/25/18 11:40 11:42 16:41 Lactic Acid Ur Collection Type Random Urine Color Yellow Urine Clarity Clear Urine pH 5.5 Ur Specific [place] 1.019 Urine Protein Trace Urine Glucose (UA) Negative Urine Ketones Negative Urine Occult Blood Trace Urine Nitrate Negative Urine Bilirubin Negative Urine Urobilinogen 0.2 Ur Leukocyte Esterase Negative Urine RBC 0-3 Urine WBC 0-5 Amorphous Sediment Rare H Micro UA Comment Culture not ind Urine Culture Comments Culture not ind Stl C.difficile Tox PCR Negative St C. diff Tox Epid 027 Negative Urine Opiates Screen Neg Ur Barbiturates Screen Neg Ur Amphetamines Screen Neg U Benzodiazepines Scrn Neg Urine Cocaine Screen Neg U Cannabinoids Screen Neg 04/26/18 07:21 Lactic Acid 1.1 Ur Collection Type Urine Color Urine Clarity Urine pH Ur Specific [place] Urine Protein Urine Glucose (UA) Urine Ketones Urine Occult Blood Urine Nitrate Urine Bilirubin Urine Urobilinogen Ur Leukocyte Esterase Urine RBC Urine WBC Amorphous Sediment Micro UA Comment Urine Culture Comments Stl C.difficile Tox PCR St C. diff Tox Epid 027 Urine Opiates Screen Ur Barbiturates Screen Ur Amphetamines Screen U Benzodiazepines Scrn Urine Cocaine Screen U Cannabinoids Screen Microbiology 04/25/18 16:41 Stool Stool Occult Blood (TAYLOR) - Final Hemoccult negative - Imaging Impressions Abdomen/Pelvis CT 04/25/18 00:00 CONCLUSION: 1. There is a large bowel containing right inguinal hernia which contains descending colon and cecum, as well as distal ileum. There is associated bowel wall thickening. 2. Hepatic steatosis, ascites, and upper abdominal varices identified. 3. Calcified splenic granulomas. Assessment and Plan - Plan 57-year-old homeless male with history of alcohol abuse, tobacco use, presents with a 5 day history of intractable nausea/vomiting/diarrhea and a 2 day history of dizziness and falls. Abdominal pain/nausea/vomiting/diarrhea: Suspect viral gastroenteritis. -Abdominal CT with large bowel containing right inguinal hernia which contains descending colon and cecum, as well as distal ileum with associated bowel wall thickening; Hepatic steatosis, ascites, and upper abdominal varices identified. -Lipase and LFTs unremarkable -Hemoccult negative -Check stool studies, pending -C.diff negative -Lactic acid 1.1 -Monitor Is&Os -Supportive treatment with IVF, antiemetics, and pain control as needed -NPO for now -Consult GI Inguinal Hernia: CT as above shows large right inguinal hernia containing bowel - descending colon, cecum, and distal ileum with associated bowel wall thickening -Consult General Surgery Dizziness/Syncope/Headache/Falls: suspect multifactorial with alcohol withdrawal and dehydration. -Give IVF hydration -Orthostatic vital signs unremarkable -monitor on telemetry -pain control as needed -consult PT, recommends outpatient PT -symptoms improving Alcohol Withdrawal: last drink 4 days prior. -Counseled on cessation -WA protocol -thiamine/folate/MV -seizure precautions -Monitor Tobacco Use: patient smokes 1 PPD -counseled on cessation -nicotine patch DVT Prophylaxis: teds/SCDs Discharge Planning: Discharge pending further clinical improvement and evaluation by GI and GS.
[2018-04-26] MEDS: Multivitamin/Minerals Therapeutic Tablet PO SCH (13:43)
[2018-04-26] MEDS: Folic Acid 1 MG Tablet PO SCH (13:43)
[2018-04-26] MEDS: Thiamine Inj 100 MG in Sodium Chlor 0.9% Inj 100 ML IV.SIG SCH (13:44)
--- NOTE | 2018-04-26 15:25 | MB ---
cc: Fabrice Milian MD DATE: 04/26/2018 PHYSICIAN REQUESTING CONSULTATION: Venkat Carter MD. REASON FOR CONSULTATION: Incarcerated right inguinal hernia. HISTORY OF PRESENT ILLNESS: The patient is a 57-year-old male who was admitted to [facility] with diagnoses of nausea, vomiting, and diarrhea, with no specific cause. He did undergo a CT scan, which did show a right inguinal hernia containing loop of colon. The patient currently states that he feels his symptoms are from his hernia, as this became stuck out. He developed nausea and vomiting, and since he reduced it while being in the hospital, this appears to have resolved. The patient gives a history of him reducing his own hernia with resolution of his symptoms. The patient does still have some diarrhea. However, the patient is able to tolerate diet at this time. He states that he has had this hernia for approximately 4 years. He has never had a previous attempt at repair. He does not feel that it was incarcerated previously. The patient has no other complaints at this time. REVIEW OF SYSTEMS: A 12-point review of systems conducted with the patient and is negative, except in the pertinent positives as mentioned above in history of present illness. PAST MEDICAL HISTORY: No chronic medical conditions. PAST SURGICAL HISTORY: The patient denies. SOCIAL HISTORY: The patient does smoke cigarettes daily, but says very few per day. The patient does not use alcohol currently. He states he is not an alcoholic and has no previous withdrawal. Denies illicit drug use. The patient is homeless. MEDICATIONS: Currently, Zofran inpatient. ALLERGIES: NO KNOWN DRUG ALLERGIES. FAMILY HISTORY: Reviewed with the patient and noncontributory. PHYSICAL EXAMINATION: VITAL SIGNS: Temperature 98.3 degrees, heart rate 73, respiratory rate 17, blood pressure 113/60, O2 saturation 99%. GENERAL: The patient is a thin, male who appears mildly disheveled, is in no acute distress. HEENT: His head is normocephalic, atraumatic. Pupils are round and reactive and accommodate to light. Sclerae are anicteric. Oral cavity is clear. Airway is patent. NECK: Supple. No JVD. LUNGS: Breath sounds present bilaterally, nonlabored breathing pattern. HEART: Regular rate and rhythm. No murmurs. ABDOMEN: Soft, scaphoid. No masses. No organomegaly. No ascites. No surgical scars. The patient has a large right inguinal hernia. This is easily reducible on exam. BACK: No CVA tenderness. EXTREMITIES: No clubbing, cyanosis, or edema. NEUROLOGIC: The patient is a GCS 15, awake, alert and oriented. Mood, judgment, and insight are intact. Cranial nerves 2-12 are grossly intact. Nonfocal peripheral exam. LABORATORY DATA: White blood cell count 9.8, hemoglobin 12.5, INR is 1.1. Chemistry reveals low albumin at 3.2. Glucose is elevated at 144. Urinalysis is negative. C. difficile toxin is negative. ASSESSMENT AND PLAN: The patient is a 57-year-old male with a large right inguinal hernia. This is poorly documented in the note as the patient having a hernia or incarceration or an episode of reduction; however, the patient does state that he did reduce his hernia himself in the hospital and his symptoms have improved since then. Specifically, he has nausea and vomiting and pain. This is concerning for a possible acutely-incarcerated hernia that is now reduced. Due to the concern for the patient at high risk for another episode of incarceration, which could potentially be life threatening in this patient, I feel that this should be repaired as an inpatient and it is not safe to discharge this patient home due to the risk of recurrent incarceration. I discussed this with him. I discussed hernia repair including the risks and benefits, as well as meshes and the risks and benefits of doing mesh for repair. He is in agreement and would like it repaired. The patient remains medically stable. We will work towards getting him on the schedule later this week for right inguinal hernia repair with mesh. Thank you very much for this consultation. MD ADRIENNE Blanchard/faraz , 02:43 PM , 02:57 PM
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
[2018-04-26] MEDS: Pantoprazole Inj 40 MG Vial IV.PUSH SCH (18:07)
[2018-04-26] MEDS: Ciprofloxacin 400 MG/200 ML 400 MG/200 ML PIGGYBACK IV.SIG SCH (20:34)
[2018-04-27 00:04] LABS: Hepatitis A IgM Antibody Nonreactive (Nonreactive); Hepatitits B Surface Antigen Nonreactive (Nonreactive)
[2018-04-27] MEDS: Ciprofloxacin 400 MG/200 ML 400 MG/200 ML PIGGYBACK IV.SIG SCH ×3 (01:18→22:36)
[2018-04-27] MEDS ORDERED: Metoprolol Tartrate 25 MG Tablet PO SCH (01:45)
[2018-04-27] MEDS ORDERED: Chlorhexidine Gluconate 2% 1 Pack (2 Cloths) TOPICAL SCH (01:45)
[2018-04-27] MEDS: Acetaminophen 325 MG Tablet PO PRN ×2 (01:59→22:52)
[2018-04-27] MEDS ORDERED: Sodium Chlor 0.9% Inj 500 ML IV.SIG SCH (02:00)
[2018-04-27] MEDS: Pantoprazole Inj 40 MG Vial IV.PUSH SCH ×2 (07:40→22:37)
[2018-04-27] MEDS: Folic Acid 1 MG Tablet PO SCH ×2 (10:14→12:06)
[2018-04-27] MEDS: Thiamine Inj 100 MG in Sodium Chlor 0.9% Inj 100 ML IV.SIG SCH (10:16)
--- NOTE | 2018-04-27 11:27 | GIPROC ---
[facility] [address] [facility]. [facility], [address] EGD PROCEDURE REPORT EXAM DATE: 04/27/2018 PATIENT NAME: José Miguel Franco MR #: [id number] BIRTHDATE: 1960 ATTENDING: Sil Jacinto MD ORDER #: [id number] SENIOR C [employer] DEVELOPER: Shazia Del Rosario and Gauri Reyes STATUS: inpatient INDICATIONS: The patient is a 57 yr old male here for an EGD due to diarrhea, abdominal pain PROCEDURE PERFORMED: EGD w/ biopsy MEDICATIONS: None and Per Anesthesia. TOPICAL ANESTHETIC: none CONSENT: The patient understands the risks and benefits of the procedure and understands that these risks include, but are not limited to: sedation, allergic reaction, infection, perforation and/or bleeding. Alternative means of evaluation and treatment include, among others: physical exam, x-rays, and/or surgical intervention. The patient elects to proceed with this endoscopic procedure. medical equipment was checked for proper function. Hand hygiene and appropriate measures for infection prevention was taken. After the risks, benefits and alternatives of the procedure were thoroughly explained, Informed consent was verified, confirmed and timeout was successfully executed by the treatment team. The patient was anesthetized with topical anesthesia and the Pentax EG-[id number] endoscope was introduced through the mouth and advanced to the second portion of the duodenum. Retroflexed views revealed a hiatal hernia The gastroscope was then slowly withdrawn and removed. Gastritis antrum-biopsy duodenitis second portion-biopsy esophagitis distal esophagus -biopsy. ADVERSE EVENTS: There were no complications. IMPRESSIONS: 1. Gastritis antrum-biopsy duodenitis second portion-biopsy esophagitis distal esophagus -biopsy 2. Retroflexed views revealed a hiatal hernia RECOMMENDATIONS: 1. Await biopsy results. Biopsy results will not be ready for 7-10 days. If you don't hear from us in two weeks, call our office for biopsy results. 2. Anti-reflux regimen 3. Continue PPI PATIENT CONDITION: stable DISPOSITION: Inpatient REPEAT EXAM: Return 1 year EGD Sil Jacinto MD eSigned: Sil Jacinto MD 04/27/2018 11:27 AM cc:
--- NOTE | 2018-04-27 11:30 | GIPROC ---
[facility] [address] [facility]. [facility], [address] FLEXIBLE SIGMOIDOSCOPY PROCEDURE REPORT EXAM DATE: 04/27/2018 PATIENT NAME: José Miguel Franco MR #: [id number] BIRTHDATE: 1960 ORDER #: [id number] ATTENDING: Sil Jacinto MD [employer] DEVELOPER: Gauri Reyes and Shazia Del Rosario STATUS: inpatient INDICATIONS: The patient is a 57 yr old male here for a flexible sigmoidoscopy due to diarrhea PROCEDURE PERFORMED: Flexible Colonoscopy with polypectomy MEDICATIONS: None and Per Anesthesia. ESTIMATED BLOOD LOSS: None CONSENT: The patient understands the risks and benefits of the procedure and understands that these risks include, but are not limited to: sedation, allergic reaction, infection, perforation and/or bleeding. Alternative means of evaluation and treatment include, among others: physical exam, x-rays, and/or surgical intervention. The patient elects to proceed with this endoscopic procedure. medical equipment was checked for proper function. Hand hygiene and appropriate measures for infection prevention was taken. After the risks, benefits and alternatives of the procedure were thoroughly explained, Informed consent was verified, confirmed and timeout was successfully executed by the treatment team. A digital rectal exam revealed external hemorrhoids The Pentax EG-[id number] endoscope was introduced through the anus and advanced to the descending colon. The prep was fair. The instrument was then slowly withdrawn as the colon was fully examined. COLON FINDINGS: Random biopsies from descending and rectum pedunculated polyp sigmoid, 1 cm-hot snare polypectomy with complete removal-1 clip applied at the base. Retroflexed views revealed internal hemorrhoid The scope was then completely withdrawn from the patient and the procedure terminated. ADVERSE EVENTS: There were no complications. IMPRESSIONS: 1. Random biopsies from descending and rectum pedunculated polyp sigmoid, 1 cm-hot snare polypectomy with complete removal-1 clip applied at the base 2. Retroflexed views revealed internal hemorrhoid 3. Revealed external hemorrhoids RECOMMENDATIONS: 1. Await biopsy results 2. Air constrast barium enema (acbe) RECALL: Return 1 month Colonoscopy after hernia repair Sil Jacinto MD eSigned: Sil Jacinto MD 04/27/2018 11:30 AM cc:
[2018-04-27] MEDS ORDERED: Lidocaine PF 1% Inj 5 ML Syringe INFILTRATN ONE (12:00)
[2018-04-27] MEDS: Multivitamin/Minerals Therapeutic Tablet PO SCH (12:06)
--- NOTE | 2018-04-27 14:20 | P.PN ---
Subjective Interval history: Follow-up for nausea/vomiting/diarrhea/abdominal pain, with associated dizziness and recent falls. Patient reports overall feeling slightly better today. He denies any further nausea or vomiting today. He reports only 2 small bowel movements today. He reports continued mild periumbilical and right inguinal abdominal pain. Discussed the results of his stool cultures with Salmonella. Patient states just prior to symptom onset he ate some chicken from [employer]. The patient reports his dizziness has improved, however he still very weak, especially with attempting ambulation. He has no other medical complaints at this time. Physical Exam Vital signs: Vital Signs 04/26/18 16:00 04/26/18 20:00 04/27/18 00:00 Temperature 102.2 F H 100.9 F H 102 F H Pulse Rate 79 80 82 Respiratory Rate 18 17 17 Blood Pressure 127/69 132/72 136/78 Pulse Oximetry 96 95 97 04/27/18 04:00 04/27/18 07:35 Temperature 99.3 F Pulse Rate 58 L 66 Respiratory Rate 17 Blood Pressure 106/68 Pulse Oximetry 97 Intake & Output 04/26/18 04/27/18 04/27/18 18:59 06:59 18:59 Intake Total 1500 / 1500 3801 / 3801 300 / 300 Balance 1500 / 1500 3801 / 3801 300 / 300 Intake: IV 1000 / 1000 3801 / 3801 200 / 200 LR 1000 mL Inj 1,000 ML @ 150 1000 / 1000 1000 / 1000 mls/hr IV.CONT .Q6H40M DANY[facility] Rx#: [id number] Cipro 400 MG/200 ML Inj 400 mg 400 / 400 200 / 200 In 200 ml @ 200 mls/hr IV.SIG Q8H D[facility] Rx#:[id number] Thiamine Inj 100 MG In NS Inj 101 / 101 100 ML @ 100 mls/hr IV.SIG DAILY D[facility] Rx#:[id number] Flagyl 500 MG Inj 100 ML @ 100 200 / 200 mls/hr IV.SIG Q8H DANYEL Rx#: [id number] Oral 0 / 0 Oral Supplement 500 / 500 Anesthesia Amount 100 / 100 Other: # Voids 3 Date of Last Bowel Movement 04/25/18 Narrative: GENERAL: Thin cachectic appearing middle aged male patient in [facility]. SKIN: Warm and dry. No rash. HEENT: Normocephalic. Atraumatic. Pupils equal and round. Mucous membranes pink and moist. NECK: Supple. Trachea midline. Bitemporal wasting. CARDIOVASCULAR: Regular rate and rhythm. No murmur appreciated. RESPIRATORY: No accessory muscle use. Clear to auscultation. Breath sounds equal bilaterally. GASTROINTESTINAL: Abdomen soft, non-tender, nondistended. Normoactive bowel sounds x4. Bulging right inguinal hernia containing bowel, tender to palpation. MUSCULOSKELETAL: No obvious deformities. Extremities without clubbing, cyanosis , or edema. NEUROLOGICAL: Awake and alert. No obvious cranial nerve deficits. Motor grossly within normal limits. Moving all extremities spontaneously. Normal speech. Results - Labs CBC & Chem 7: 04/25/18 08:40 04/25/18 08:40 Laboratory Results - last 24 hr 04/26/18 17:34 Hepatitis A IgM Ab Nonreactive Hep Bs Antigen Nonreactive Hep B Core IgM Ab Nonreactive Hep C IgG Ab Reactive H Microbiology 04/26/18 20:35 Stool Enteric Pathogens (PCR) - Final Salmonella species 04/26/18 19:21 Blood - Peripheral Aerobic Blood Culture - Preliminary No growth in 1 day 04/26/18 19:21 Blood - Peripheral Anaerobic Blood Culture - Preliminary No growth in 1 day 04/26/18 19:16 Blood - Peripheral Aerobic Blood Culture - Preliminary No growth in 1 day 04/26/18 19:16 Blood - Peripheral Anaerobic Blood Culture - Preliminary No growth in 1 day - Imaging Abdomen/Pelvis CT 04/25/18 00:00 CONCLUSION: 1. There is a large bowel containing right inguinal hernia which contains descending colon and cecum, as well as distal ileum. There is associated bowel wall thickening. 2. Hepatic steatosis, ascites, and upper abdominal varices identified. 3. Calcified splenic granulomas. Chest X-Ray 04/25/18 08:02 CONCLUSION: 1. Minimal atelectatic changes above the left hemidiaphragm. 2. Subacute to chronic appearing fractures through the lateral aspect of the left sixth and seventh ribs with callus formation. 3. Otherwise negative. No acute cardiopulmonary process Head CT 04/25/18 08:02 CONCLUSION: Negative exam. No change from prior. Barium Enema w/ Air Contrast, therapeutic 04/27/18 00:00 CONCLUSION: Mild diverticulosis. - Procedures 04/27/18EGD with Dr. Jacinto showed gastritis, duodenitis, esophagitis, hiatal hernia Assessment and Plan - Plan 57-year-old homeless male with history of alcohol abuse, tobacco use, presents with a 5 day history of intractable nausea/vomiting/diarrhea and a 2 day history of dizziness and falls. Abdominal pain/nausea/vomiting/diarrhea: Suspect gastroenteritis. +Fever with Tmax 102.2 -Abdominal CT with large bowel containing right inguinal hernia which contains descending colon and cecum, as well as distal ileum with associated bowel wall thickening; Hepatic steatosis, ascites, and upper abdominal varices identified. -Lipase and LFTs unremarkable -Hemoccult negative -Stool studies positive for Salmonella -Started on IV Cipro/Flagyl -C.diff negative -Monitor Is&Os -Supportive treatment with IVF, antiemetics, and pain control as needed -Consulted GI, appreciate assistance -04/27 s/p EGD showed gastritis, duodenitis, esophagitis, hiatal hernia Inguinal Hernia: CT as above shows large right inguinal hernia containing bowel - descending colon, cecum, and distal ileum with associated bowel wall thickening -Consult General Surgery, discussed with Dr. Milian, recommends hernia repair, planning for early next week while inpatient Dizziness/Syncope/Headache/Falls: suspect multifactorial with alcohol withdrawal and dehydration. -Give IVF hydration -Orthostatic vital signs unremarkable -monitor on telemetry -pain control as needed -consult PT, recommends outpatient PT -symptoms improving Alcohol Withdrawal: last drink 4 days prior. -Counseled on cessation -CIWA protocol -thiamine/folate/MV -seizure precautions -Monitor Tobacco Use: patient smokes 1 PPD -counseled on cessation -nicotine patch DVT Prophylaxis: teds/SCDs Discharge Planning: Discharge pending further clinical improvement. Treating for severe infection with Salmonella. General surgery planning for hernia repair early next week in hospital.
--- NOTE | 2018-04-27 15:48 | FL ---
EXAM DATE: 04/27/2018 3:42 PM EDT AGE/SEX: 57 years / Male INDICATIONS: Incomplete colonoscopy. CLINICAL DATA: This is the patient's initial encounter. Patient reports that signs and symptoms have been present for 2 days and indicates a pain score of 0/10. MEDICAL/SURGICAL HISTORY: . cardiac disease, inguinal hernia and having surgery tomorrow . hea rt catheterization, sigmoidoscopy COMPARISON: No prior exams available for comparison. FLUORO TIME: 3.4 minutes. IMAGE COUNT: 18 FINDINGS: A balloon tip catheter was inserted into the rectum, and air and barium were instilled under fluorosc opic control. Barium flows freely to the cecum without obstruction. The colon is of a normal diamet er. There are no fixed polypoid filling defects or annular constricting lesions identified. There ar e several small scattered diverticuli identified with no inflammatory change. The ileocecal valve is competent. Contrast is seen in the vermiform appendix. CONCLUSION: Mild diverticulosis. Electronically signed by: Denny Batista MD 04/27/2018 3:47 PM EDT
--- NOTE | 2018-04-27 18:11 | P.PNGS ---
<Meri Pearson - Last Filed: 04/28/18 10:38> Subjective Interval history: Resting in bed; Febrile Stool studies positive for Salmonella Physical Exam Vital signs: Vital Signs 04/26/18 20:00 04/27/18 00:00 04/27/18 04:00 Temperature 100.9 F H 102 F H 99.3 F Pulse Rate 80 82 58 L Respiratory Rate 17 17 17 Blood Pressure 132/72 136/78 106/68 Pulse Oximetry 95 97 97 04/27/18 07:35 04/27/18 15:29 Temperature 101.4 F H Pulse Rate 66 81 Respiratory Rate 16 Blood Pressure 161/98 H Pulse Oximetry 95 Intake & Output 04/26/18 04/27/18 04/27/18 18:59 06:59 18:59 Intake Total 1500 / 1500 3801 / 3801 300 / 300 Balance 1500 / 1500 3801 / 3801 300 / 300 Intake: IV 1000 / 1000 3801 / 3801 200 / 200 LR 1000 mL Inj 1,000 ML @ 150 1000 / 1000 1000 / 1000 mls/hr IV.CONT .Q6H40M DANYEL Rx#: [id number] Cipro 400 MG/200 ML Inj 400 mg 400 / 400 200 / 200 In 200 ml @ 200 mls/hr IV.SIG Q8H DANYEL Rx#:[id number] Thiamine Inj 100 MG In NS Inj 101 / 101 100 ML @ 100 mls/hr IV.SIG DAILY DANYEL Rx#:[id number] Flagyl 500 MG Inj 100 ML @ 100 200 / 200 mls/hr IV.SIG Q8H DANYEL Rx#: [id number] Oral 0 / 0 Oral Supplement 500 / 500 Anesthesia Amount 100 / 100 Other: # Voids 3 Date of Last Bowel Movement 04/25/18 Narrative: Alert and awake Cardio: RRR Resp: CTAB Abd: soft non tender No edema Assessment and Plan - Assessment (1) Right inguinal hernia Code(s): K40.90 - Unilateral inguinal hernia, without obstruction or gangrene, not specified as recurrent Status: Acute Plan: 57 year old male with reducible RIGHT inguinal hernia -In need of operative repair -Stool studies now positive for Salmonella---on IV antibiotics -Will postpone hernia repair until early next week due to increase risk of infection -Diet as tolerated -Patient understands and agrees with plan -Discussed with AVA Shepard <Fabrice Milian - Last Filed: 05/03/18 14:30> Physical Exam Vital signs: Vital Signs 05/02/18 16:00 05/02/18 20:00 05/03/18 08:00 Temperature 98.5 F 97.9 F 97.9 F Pulse Rate 72 67 69 Respiratory Rate 19 20 19 Blood Pressure 109/64 138/83 155/90 H Pulse Oximetry 97 97 97 05/03/18 12:00 Temperature 98.1 F Pulse Rate 62 Respiratory Rate 18 Blood Pressure 128/77 Pulse Oximetry 98 Intake & Output 05/02/18 05/03/18 05/03/18 18:59 06:59 18:59 Intake Total 700 / 700 100 / 100 800 / 800 Balance 700 / 700 100 / 100 800 / 800 Intake: IV 700 / 700 100 / 100 800 / 800 Cipro 400 MG/200 ML Inj 400 mg 400 / 400 400 / 400 In 200 ml @ 200 mls/hr IV.SIG Q8H DANYEL Rx#:[id number] Ancef Inj 1,000 MG In NS Inj 100 / 100 100 / 100 200 / 200 100 ML @ 200 mls/hr IV.SIG Q8H DANYEL Rx#:[id number] Flagyl 500 MG Inj 100 ML @ 100 200 / 200 200 / 200 mls/hr IV.SIG Q8H DANYEL Rx#: [id number] Other: # Voids 2 Date of Last Bowel Movement 05/01/18 05/01/18 # Bowel Movements 1 Assessment and Plan - Assessment (1) Right inguinal hernia Code(s): K40.90 - Unilateral inguinal hernia, without obstruction or gangrene, not specified as recurrent Status: Acute - Attending Attestation The exam, history, and the medical decision-making described in the above note were completed with the assistance of the mid-level provider. I reviewed and agree with the findings presented. I attest that I had a [id number] encounter with the patient on the same day, and personally performed and documented my assessment and findings in the medical record. Abdominal Exam: right inguinal hernia, stable, reducible for inpatient hernia repair once medically stable
[2018-04-28] MEDS: Ciprofloxacin 400 MG/200 ML 400 MG/200 ML PIGGYBACK IV.SIG SCH ×4 (08:12→19:33)
[2018-04-28] MEDS: Pantoprazole Inj 40 MG Vial IV.PUSH SCH ×2 (08:24→18:59)
[2018-04-28 09:45] LABS: Baso % (Auto) 0.4 % (0.0-2.0); Hematocrit 39.5 % (39.0-51.0); Hemoglobin 14.1 gm/dL (13.0-17.0); Lymph # (Auto) 0.7 th/mm3 (1.0-4.8); Lymph % (Auto) 14.3 % (9.0-44.0); Mean Corpuscular HGB Conc 35.6 % (32.0-36.0); Mean Corpuscular Hemoglobin 31.8 pg (27.0-34.0); Mean Corpuscular Volume 89.3 fL (80.0-100.0); Mean Platelet Volume 8.6 fL (7.0-11.0); Mono # (Auto) 0.7 th/mm3 (0.0-0.9); Mono % (Auto) 15.1 % (0.0-8.0); Neut # (Auto) 3.5 th/mm3 (1.8-7.7); Neut % (Auto) 70.2 % (16.0-70.0); Platelet Count 175 th/mm3 (150-450); Red Blood Count 4.43 mil/mm3 (4.50-5.90); Red Cell Distribution Width 12.9 % (11.6-17.2); White Blood Count 4.9 th/mm3 (4.0-11.0)
[2018-04-28 10:02] LABS: Anion Gap 9 meq/L (5-15); Blood Urea Nitrogen 6 mg/dL (7-18); Calcium 8.3 mg/dL (8.5-10.1); Carbon Dioxide 31.8 meq/L (21.0-32.0); Chloride 97 meq/L (98-107); Glomerular Filtration Rate Greater Than 89 mL/min (>89); Glucose,Random 86 mg/dL (74-106); Magnesium 1.9 mg/dL (1.5-2.5); Sodium 138 meq/L (136-145)
--- NOTE | 2018-04-28 10:08 | P.PN ---
Subjective Interval history: Follow up for abdominal pain, nausea/vomiting, diarrhea, Salmonella, inguinal hernia. The patient reports not feeling well again today. He denies any further diarrhea overnight. Still occasionally nauseous, no vomiting today. He reports continued constant abdominal pain at right inguinal region. He states he was able to tolerate small portions of his meals last night. Denies fevers, does report chills and sweats. He reports continued generalized weakness. No other medical complaints at this time. Physical Exam Vital signs: Vital Signs 04/27/18 11:25 04/27/18 15:29 04/27/18 19:47 Temperature 101.4 F H 100.7 F H Pulse Rate 69 81 79 Respiratory Rate 16 17 Blood Pressure 161/98 H 128/80 Pulse Oximetry 95 96 04/27/18 23:37 04/28/18 04:00 04/28/18 04:15 Temperature 99.5 F 98.6 F Pulse Rate 70 65 49 L Respiratory Rate 18 18 Blood Pressure 132/81 118/76 Pulse Oximetry 95 96 04/28/18 07:48 Temperature 98.3 F Pulse Rate 67 Respiratory Rate 18 Blood Pressure 129/76 Pulse Oximetry 97 Intake & Output 04/27/18 04/28/18 04/28/18 18:59 06:59 18:59 Intake Total 300 / 300 100 / 100 500 / 500 Balance 300 / 300 100 / 100 500 / 500 Intake: IV 200 / 200 100 / 100 500 / 500 Cipro 400 MG/200 ML Inj 400 mg 200 / 200 400 / 400 In 200 ml @ 200 mls/hr IV.SIG Q8H DANYEL Rx#:[id number] Flagyl 500 MG Inj 100 ML @ 100 100 / 100 100 / 100 mls/hr IV.SIG Q8H DANYEL Rx#: [id number] Anesthesia Amount 100 / 100 Other: Date of Last Bowel Movement 04/25/18 Narrative: GENERAL: Thin cachectic appearing middle aged male patient in [facility]. SKIN: Warm and dry. No rash. HEENT: Normocephalic. Atraumatic. Pupils equal and round. Mucous membranes pink and moist. NECK: Supple. Trachea midline. Bitemporal wasting. CARDIOVASCULAR: Regular rate and rhythm. No murmur appreciated. RESPIRATORY: No accessory muscle use. Clear to auscultation. Breath sounds equal bilaterally. GASTROINTESTINAL: Abdomen soft, non-tender, nondistended. Normoactive bowel sounds x4. Bulging right inguinal hernia containing bowel, tender to palpation. MUSCULOSKELETAL: No obvious deformities. Extremities without clubbing, cyanosis , or edema. NEUROLOGICAL: Awake and alert. No obvious cranial nerve deficits. Motor grossly within normal limits. Moving all extremities spontaneously. Normal speech. Results - Labs CBC & Chem 7: 04/28/18 08:02 04/28/18 08:02 Laboratory Results - last 24 hr 04/28/18 08:02 WBC 4.9 RBC 4.43 L Hgb 14.1 Hct 39.5 MCV 89.3 MCH 31.8 MCHC 35.6 RDW 12.9 Plt Count 175 MPV 8.6 Neut % (Auto) 70.2 H Lymph % (Auto) 14.3 [place] % (Auto) 15.1 H Eos % (Auto) 0.0 Baso % (Auto) 0.4 Neut # (Auto) 3.5 Lymph # (Auto) 0.7 L [place] # (Auto) 0.7 Eos # (Auto) 0.0 Baso # (Auto) 0.0 WBC Differential . Differential Comment Auto diff final Microbiology 04/26/18 20:35 Stool Enteric Pathogens (PCR) - Final Salmonella species 04/26/18 19:21 Blood - Peripheral Aerobic Blood Culture - Preliminary No growth in 1 day 04/26/18 19:21 Blood - Peripheral Anaerobic Blood Culture - Preliminary No growth in 1 day 04/26/18 19:16 Blood - Peripheral Aerobic Blood Culture - Preliminary No growth in 1 day 04/26/18 19:16 Blood - Peripheral Anaerobic Blood Culture - Preliminary No growth in 1 day - Imaging Impressions Barium Enema w/ Air Contrast, therapeutic 04/27/18 00:00 CONCLUSION: Mild diverticulosis. - Procedures 04/27/18EGD with Dr. Jacinto showed gastritis, duodenitis, esophagitis, hiatal hernia Assessment and Plan - Plan 57-year-old homeless male with history of alcohol abuse, tobacco use, presents with a 5 day history of intractable nausea/vomiting/diarrhea and a 2 day history of dizziness and falls. Abdominal pain/nausea/vomiting/diarrhea: Suspect gastroenteritis. +Fever with Tmax 102.2 -Abdominal CT with large bowel containing right inguinal hernia which contains descending colon and cecum, as well as distal ileum with associated bowel wall thickening; Hepatic steatosis, ascites, and upper abdominal varices identified. -Lipase and LFTs unremarkable -Hemoccult negative -Stool studies positive for Salmonella -Started on IV Cipro/Flagyl -C.diff negative -Monitor Is&Os -Supportive treatment with IVF, antiemetics, and pain control as needed -Consulted GI, appreciate assistance -04/27 s/p EGD showed gastritis, duodenitis, esophagitis, hiatal hernia -Symptoms slowly improving Inguinal Hernia: CT as above shows large right inguinal hernia containing bowel - descending colon, cecum, and distal ileum with associated bowel wall thickening -Consult General Surgery, discussed with Dr. Milian, recommends hernia repair, planning for early next week while inpatient Hypokalemia: K 2.3, secondary to GI losses from vomiting/diarrhea -Give IV KCl boluses 20meq x4 doses -Repeat labs, replace electrolytes as needed Dizziness/Syncope/Headache/Falls: suspect multifactorial with alcohol withdrawal and dehydration. -Give IVF hydration -Orthostatic vital signs unremarkable -monitor on telemetry -pain control as needed -consult PT, recommends outpatient PT -symptoms improving Alcohol Withdrawal: last drink 4 days prior to arrival. -Counseled on cessation -CIWA protocol -thiamine/folate/MV -seizure precautions -Monitor Tobacco Use: patient smokes 1 PPD -counseled on cessation -nicotine patch DVT Prophylaxis: teds/SCDs; avoid chemical prophylaxis with upcoming procedure. Discharge Planning: Discharge pending further clinical improvement. Treating for severe infection with Salmonella. General surgery planning for hernia repair early next week in hospital.
[2018-04-28] MEDS: Multivitamin/Minerals Therapeutic Tablet PO SCH (10:26)
[2018-04-28] MEDS: Folic Acid 1 MG Tablet PO SCH (10:26)
[2018-04-28 10:50] LABS: Potassium 2.3 meq/L (3.5-5.1)
[2018-04-28] MEDS: Thiamine Inj 100 MG in Sodium Chlor 0.9% Inj 100 ML IV.SIG SCH (11:23)
[2018-04-28] MEDS: Potassium Chlor 10 mEq Premix 10 MEQ/100 ML PIGGYBACK IV.SIG SCH ×5 (13:50→21:07)
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
[2018-04-29] MEDS: Potassium Chlor 10 mEq Premix 10 MEQ/100 ML PIGGYBACK IV.SIG SCH ×3 (00:34→03:22)
[2018-04-29] MEDS: Ciprofloxacin 400 MG/200 ML 400 MG/200 ML PIGGYBACK IV.SIG SCH ×3 (03:21→18:33)
[2018-04-29] MEDS: Pantoprazole Inj 40 MG Vial IV.PUSH SCH ×2 (05:16→17:16)
[2018-04-29 08:07] LABS: Anion Gap 5 meq/L (5-15); Blood Urea Nitrogen 9 mg/dL (7-18); Calcium 8.1 mg/dL (8.5-10.1); Carbon Dioxide 32.1 meq/L (21.0-32.0); Chloride 101 meq/L (98-107); Glomerular Filtration Rate Greater Than 89 mL/min (>89); Glucose,Random 99 mg/dL (74-106); Sodium 138 meq/L (136-145)
[2018-04-29 08:09] LABS: Potassium 2.9 meq/L (3.5-5.1)
--- NOTE | 2018-04-29 08:59 | P.PN ---
Subjective Interval history: Follow-up for abdominal pain/nausea/vomiting/diarrhea, with Salmonella and right inguinal hernia. The patient reports feeling much better today. He denies any further nausea/vomiting or diarrhea overnight. Denies any fevers or chills. He is looking forward to trying a regular meal this morning. He is still having pain at the site of his right inguinal hernia. He also reports a mild headache today, requesting Tylenol. He has no other medical complaints at this time. Physical Exam Vital signs: Vital Signs 04/28/18 11:34 04/28/18 16:00 04/28/18 20:00 Temperature 98.4 F 98.9 F 98.6 F Pulse Rate 67 69 67 Respiratory Rate 18 Blood Pressure 119/77 122/80 116/80 Pulse Oximetry 95 96 98 04/28/18 23:42 04/29/18 03:47 04/29/18 07:58 Temperature 98.9 F 98.7 F 98.2 F Pulse Rate 65 57 L 59 L Respiratory Rate 18 18 16 Blood Pressure 126/86 117/84 126/81 Pulse Oximetry 96 96 96 Intake & Output 04/28/18 04/29/18 04/29/18 18:59 06:59 18:59 Intake Total 2099 / 2099 1000 / 1000 Balance 2099 / 2099 1000 / 1000 Intake: IV 2099 / 2099 1000 / 1000 Cipro 400 MG/200 ML Inj 400 mg 600 / 600 400 / 400 In 200 ml @ 200 mls/hr IV.SIG Q8H DANYEL Rx#:[id number] LR 1000 mL Inj 1,000 ML @ 30 1000 / 1000 mls/hr IV.SIG .Q24H DANYEL Rx#: [id number] KCl 10 mEq Premix Inj 10 meq In 200 / 200 500 / 500 100 ml @ 100 mls/hr IV.SIG Q1H DANYEL Rx#:[id number] Flagyl 500 MG Inj 100 ML @ 100 300 / 300 100 / 100 mls/hr IV.SIG Q8H DANYEL Rx#: [id number] Other: # Voids 4 Date of Last Bowel Movement 04/28/18 Narrative: GENERAL: Thin cachectic appearing middle aged male patient in [facility]. SKIN: Warm and dry. No rash. HEENT: Normocephalic. Atraumatic. Pupils equal and round. Mucous membranes pink and moist. NECK: Supple. Trachea midline. Bitemporal wasting. CARDIOVASCULAR: Regular rate and rhythm. No murmur appreciated. RESPIRATORY: No accessory muscle use. Clear to auscultation. Breath sounds equal bilaterally. GASTROINTESTINAL: Abdomen soft, non-tender, nondistended. Normoactive bowel sounds x4. Bulging right inguinal hernia containing bowel, mildly tender to palpation. MUSCULOSKELETAL: No obvious deformities. Extremities without clubbing, cyanosis , or edema. NEUROLOGICAL: Awake and alert. No obvious cranial nerve deficits. Motor grossly within normal limits. Moving all extremities spontaneously. Normal speech. Results - Labs CBC & Chem 7: 04/28/18 08:02 04/29/18 06:18 Laboratory Results - last 24 hr 04/28/18 04/28/18 04/29/18 08:02 08:02 06:18 WBC 4.9 RBC 4.43 L Hgb 14.1 Hct 39.5 MCV 89.3 MCH 31.8 MCHC 35.6 RDW 12.9 Plt Count 175 MPV 8.6 Neut % (Auto) 70.2 H Lymph % (Auto) 14.3 Real % (Auto) 15.1 H Eos % (Auto) 0.0 Baso % (Auto) 0.4 Neut # (Auto) 3.5 Lymph # (Auto) 0.7 L Real # (Auto) 0.7 Eos # (Auto) 0.0 Baso # (Auto) 0.0 WBC Differential . Differential Comment Auto diff final Sodium 138 138 Potassium 2.3 L* 2.9 L* Chloride 97 L 101 Carbon Dioxide 31.8 32.1 H Anion Gap 9 5 BUN 6 L 9 Creatinine 0.61 0.77 Estimated GFR Greater than 89 Greater than 89 Random Glucose 86 99 Calcium 8.3 L 8.1 L Magnesium 1.9 Microbiology 04/26/18 19:21 Blood - Peripheral Aerobic Blood Culture - Preliminary No growth in 2 days 04/26/18 19:21 Blood - Peripheral Anaerobic Blood Culture - Preliminary No growth in 2 days 04/26/18 19:16 Blood - Peripheral Aerobic Blood Culture - Preliminary No growth in 2 days 04/26/18 19:16 Blood - Peripheral Anaerobic Blood Culture - Preliminary No growth in 2 days 04/26/18 20:35 Stool Cryptosporidium Antigen - Final Negative - No Cryptosporicium antigen detected In selected cases of patients with a history of immunosuppression or foreign travel, a full ova and parasites examination may be desired. Contact the microbiology lab if full workup is indicated and subit another specimen for testing. 04/26/18 20:35 Stool Giardia Antigen ([facility]) - Final Negative - No Giardia Antigen detected In selected cases of patients with a history of immunosuppression or foreign travel, a full ova and parasites examination may be desired. Contact the microbiology lab if full workup is indicated and subit another specimen for testing. - Imaging Abdomen/Pelvis CT 04/25/18 00:00 CONCLUSION: 1. There is a large bowel containing right inguinal hernia which contains descending colon and cecum, as well as distal ileum. There is associated bowel wall thickening. 2. Hepatic steatosis, ascites, and upper abdominal varices identified. 3. Calcified splenic granulomas. Chest X-Ray 04/25/18 08:02 CONCLUSION: 1. Minimal atelectatic changes above the left hemidiaphragm. 2. Subacute to chronic appearing fractures through the lateral aspect of the left sixth and seventh ribs with callus formation. 3. Otherwise negative. No acute cardiopulmonary process Head CT 04/25/18 08:02 CONCLUSION: Negative exam. No change from prior. Barium Enema w/ Air Contrast, therapeutic 04/27/18 00:00 CONCLUSION: Mild diverticulosis. - Procedures 04/27/18EGD with Dr. Jacinto showed gastritis, duodenitis, esophagitis, hiatal hernia Assessment and Plan - Plan 57-year-old homeless male with history of alcohol abuse, tobacco use, presents with a 5 day history of intractable nausea/vomiting/diarrhea and a 2 day history of dizziness and falls. Abdominal pain/nausea/vomiting/diarrhea: Suspect gastroenteritis. +Fever with Tmax 102.2 -Abdominal CT with large bowel containing right inguinal hernia which contains descending colon and cecum, as well as distal ileum with associated bowel wall thickening; Hepatic steatosis, ascites, and upper abdominal varices identified. -Lipase and LFTs unremarkable -Hemoccult negative -Stool studies positive for Salmonella -Started on IV Cipro/Flagyl -C.diff negative -Monitor Is&Os -Supportive treatment with IVF, antiemetics, and pain control as needed -Consulted GI, appreciate assistance -04/27 s/p EGD showed gastritis, duodenitis, esophagitis, hiatal hernia -Symptoms improved, diet advanced for now Inguinal Hernia: CT as above shows large right inguinal hernia containing bowel - descending colon, cecum, and distal ileum with associated bowel wall thickening -Consult General Surgery, discussed with Dr. Milian and Meri LIRIANO, recommends hernia repair, planning tentatively for Thursday 05/03 Hypokalemia: K 2.3, secondary to GI losses from vomiting/diarrhea -Give IV KCl boluses 20meq x4 doses -Repeat labs, replace electrolytes as needed -K 2.9 today, will give additional po KCl replacement x80meq -Repeat BMP in am Dizziness/Syncope/Headache/Falls: suspect multifactorial with alcohol withdrawal and dehydration. -Give IVF hydration -Orthostatic vital signs unremarkable -monitor on telemetry -pain control as needed -consult PT, recommends outpatient PT -symptoms much improved with improvement of GI complaints Alcohol Withdrawal: last drink 4 days prior to arrival. -Counseled on cessation -[facility] protocol -thiamine/folate/MV -seizure precautions -Monitor Tobacco Use: patient smokes 1 PPD -counseled on cessation -nicotine patch DVT Prophylaxis: teds/SCDs; avoid chemical prophylaxis with upcoming procedure. Discharge Planning: Discharge pending further clinical improvement. Treating for severe infection with Salmonella. General surgery planning for hernia repair on Thursday 05/03.
[2018-04-29] MEDS: Folic Acid 1 MG Tablet PO SCH (09:00)
[2018-04-29] MEDS: Multivitamin/Minerals Therapeutic Tablet PO SCH (09:00)
[2018-04-29] MEDS ORDERED: Acetaminophen 500 MG Tablet PO ONE (09:02)
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
--- NOTE | 2018-04-29 14:23 | P.PNGS ---
Subjective Interval history: Feeling better; eating better Physical Exam Vital signs: Vital Signs 04/28/18 16:00 04/28/18 20:00 04/28/18 23:42 Temperature 98.9 F 98.6 F 98.9 F Pulse Rate 69 67 65 Respiratory Rate 18 18 18 Blood Pressure 122/80 116/80 126/86 Pulse Oximetry 96 98 96 04/29/18 03:47 04/29/18 07:58 04/29/18 12:00 Temperature 98.7 F 98.2 F 98.0 F Pulse Rate 57 L 59 L 63 Respiratory Rate 18 16 16 Blood Pressure 117/84 126/81 131/88 Pulse Oximetry 96 96 97 Intake & Output 04/28/18 04/29/18 04/29/18 18:59 06:59 18:59 Intake Total 2099 / 2099 1000 / 1000 300 / 300 Balance 2099 1000 / 1000 300 / 300 Intake: IV 2099 / 2099 1000 / 1000 300 / 300 Cipro 400 MG/200 ML Inj 400 mg 600 / 600 400 / 400 200 / 200 In 200 ml @ 200 mls/hr IV.SIG Q8H [facility] Rx#:[id number] LR 1000 mL Inj 1,000 ML @ 30 1000 / 1000 mls/hr IV.SIG .Q24H [facility] Rx#: [id number] KCl 10 mEq Premix Inj 10 meq In 200 / 200 500 / 500 100 ml @ 100 mls/hr IV.SIG Q1H [facility] Rx#:[id number] Flagyl 500 MG Inj 100 ML @ 100 300 / 300 100 / 100 100 / 100 mls/hr IV.SIG Q8H DANY[facility] Rx#: [id number] Other: # Voids 4 Date of Last Bowel Movement 04/28/18 04/28/18 Narrative: Alert and awake Cardio: RRR Resp: CTAB Abd: soft non tender Assessment and Plan - Assessment (1) Right inguinal hernia Code(s): K40.90 - Unilateral inguinal hernia, without obstruction or gangrene, not specified as recurrent Status: Acute Plan: 57 year old male with reducible RIGHT inguinal hernia -In need of operative repair -Stool studies now positive for Salmonella---on IV antibiotics -Will postpone hernia repair until early next week---now on schedule for Wednesday -Diet as tolerated -Patient understands and agrees with plan -Discussed with AVA Shepard -General Surgery will see PRN over the weekend; please call with questions
[2018-04-29 17:19] LABS: Anion Gap 7 meq/L (5-15); Blood Urea Nitrogen 9 mg/dL (7-18); Carbon Dioxide 28.5 meq/L (21.0-32.0); Chloride 103 meq/L (98-107); Glomerular Filtration Rate Greater Than 89 mL/min (>89); Glucose,Random 104 mg/dL (74-106); Potassium 3.4 meq/L (3.5-5.1); Sodium 138 meq/L (136-145)
[2018-04-30] MEDS: Ciprofloxacin 400 MG/200 ML 400 MG/200 ML PIGGYBACK IV.SIG SCH ×3 (01:47→18:09)
[2018-04-30] MEDS: Pantoprazole Inj 40 MG Vial IV.PUSH SCH ×2 (05:47→17:05)
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
[2018-04-30] MEDS: Folic Acid 1 MG Tablet PO SCH (09:11)
[2018-04-30] MEDS: Multivitamin/Minerals Therapeutic Tablet PO SCH (09:12)
--- NOTE | 2018-04-30 10:31 | P.PN ---
Subjective Interval history: Follow-up for abdominal pain/nausea/vomiting/diarrhea, with Salmonella and right inguinal hernia. Patient reports continued improvement. He reports 2 formed nonbloody bowel movements overnight. Denies any further nausea or vomiting. Tolerating oral intake. Denies fevers or chills. Still has discomfort at his right inguinal hernia. He has no other medical complaints at this time. Physical Exam Vital signs: Vital Signs 04/29/18 12:00 04/29/18 15:28 04/29/18 20:00 Temperature 98.0 F 97.7 F 97.9 F Pulse Rate 63 63 71 Respiratory Rate 16 18 20 Blood Pressure 131/88 135/85 146/85 H Pulse Oximetry 97 98 98 04/30/18 00:00 04/30/18 03:56 04/30/18 08:00 Temperature 97.7 F 97.7 F 97.9 F Pulse Rate 51 L 58 L 57 L Respiratory Rate 18 20 16 Blood Pressure 143/84 H 136/80 124/84 Pulse Oximetry 97 97 96 Intake & Output 04/29/18 04/30/18 04/30/18 18:59 06:59 18:59 Intake Total 400 / 400 1220 / 1220 Balance 400 / 400 1220 / 1220 Intake: IV 400 / 400 500 / 500 Cipro 400 MG/200 ML Inj 400 mg 200 / 200 400 / 400 In 200 ml @ 200 mls/hr IV.SIG Q8H [facility] Rx#:[id number] Flagyl 500 MG Inj 100 ML @ 100 200 / 200 100 / 100 mls/hr IV.SIG Q8H DANYEL Rx#: [id number] Oral 720 / 720 Other: # Voids 3 Date of Last Bowel Movement 04/28/18 04/30/18 # Bowel Movements 1 Narrative: GENERAL: Thin cachectic appearing middle aged male patient in [facility]. SKIN: Warm and dry. No rash. HEENT: Normocephalic. Atraumatic. Bitemporal wasting. Pupils equal and round. Mucous membranes pink and moist. CARDIOVASCULAR: Regular rate and rhythm. No murmur appreciated. RESPIRATORY: No accessory muscle use. Clear to auscultation. Breath sounds equal bilaterally. GASTROINTESTINAL: Abdomen soft, non-tender, nondistended. Normoactive bowel sounds x4. Bulging right inguinal hernia containing bowel, mildly tender to palpation. MUSCULOSKELETAL: No obvious deformities. Extremities without clubbing, cyanosis , or edema. NEUROLOGICAL: Awake and alert. No obvious cranial nerve deficits. Moving all extremities spontaneously. Normal speech. Results - Labs CBC & Chem 7: 04/28/18 08:02 04/29/18 16:48 Laboratory Results - last 24 hr 04/29/18 16:48 Sodium 138 Potassium 3.4 L Chloride 103 Carbon Dioxide 28.5 Anion Gap 7 BUN 9 Creatinine 0.82 Estimated GFR Greater than 89 Random Glucose 104 Calcium 8.0 L Microbiology 04/26/18 19:21 Blood - Peripheral Aerobic Blood Culture - Preliminary No growth in 3 days 04/26/18 19:21 Blood - Peripheral Anaerobic Blood Culture - Preliminary No growth in 3 days 04/26/18 19:16 Blood - Peripheral Aerobic Blood Culture - Preliminary No growth in 3 days 04/26/18 19:16 Blood - Peripheral Anaerobic Blood Culture - Preliminary No growth in 3 days - Imaging Abdomen/Pelvis CT 04/25/18 00:00 CONCLUSION: 1. There is a large bowel containing right inguinal hernia which contains descending colon and cecum, as well as distal ileum. There is associated bowel wall thickening. 2. Hepatic steatosis, ascites, and upper abdominal varices identified. 3. Calcified splenic granulomas. Chest X-Ray 04/25/18 08:02 CONCLUSION: 1. Minimal atelectatic changes above the left hemidiaphragm. 2. Subacute to chronic appearing fractures through the lateral aspect of the left sixth and seventh ribs with callus formation. 3. Otherwise negative. No acute cardiopulmonary process Head CT 04/25/18 08:02 CONCLUSION: Negative exam. No change from prior. Barium Enema w/ Air Contrast, therapeutic 04/27/18 00:00 CONCLUSION: Mild diverticulosis. - Procedures 04/27/18EGD with Dr. Jacinto showed gastritis, duodenitis, esophagitis, hiatal hernia Assessment and Plan - Plan 57-year-old homeless male with history of alcohol abuse, tobacco use, presents with a 5 day history of intractable nausea/vomiting/diarrhea and a 2 day history of dizziness and falls. Abdominal pain/nausea/vomiting/diarrhea: Suspect gastroenteritis. +Fever with Tmax 102.2 -Abdominal CT with large bowel containing right inguinal hernia which contains descending colon and cecum, as well as distal ileum with associated bowel wall thickening; Hepatic steatosis, ascites, and upper abdominal varices identified. -Lipase and LFTs unremarkable -Hemoccult negative -Stool studies positive for Salmonella -Started on IV Cipro/Flagyl -C.diff negative -Monitor Is&Os -Supportive treatment with IVF, antiemetics, and pain control as needed -Consulted GI, appreciate assistance -04/27 s/p EGD showed gastritis, duodenitis, esophagitis, hiatal hernia -Symptoms improved, diet advanced, patient tolerating well Inguinal Hernia: CT as above shows large right inguinal hernia containing bowel - descending colon, cecum, and distal ileum with associated bowel wall thickening -Consult General Surgery, discussed with Dr. Milian and Meri LIRIANO, recommends hernia repair, planning tentatively for Thursday 05/03 Hypokalemia: K 2.3, secondary to GI losses from vomiting/diarrhea -Given total IV KCl boluses 20meq x4 doses, and an additional 80meq po -Repeat labs, replace electrolytes as needed -K 3.4 today, given additional 20meq KCl Dizziness/Syncope/Headache/Falls: suspect multifactorial with alcohol withdrawal and dehydration. -Give IVF hydration -Orthostatic vital signs unremarkable -monitor on telemetry -pain control as needed -consult PT, recommends outpatient PT -symptoms much improved with improvement of GI complaints Alcohol Withdrawal: last drink 4 days prior to arrival. -Counseled on cessation -CIWA protocol -thiamine/folate/MV -seizure precautions -Monitor Tobacco Use: patient smokes 1 PPD -counseled on cessation -nicotine patch DVT Prophylaxis: teds/SCDs; avoid chemical prophylaxis with upcoming procedure. Discharge Planning: Discharge pending further clinical improvement. Treating for severe infection with Salmonella. General surgery planning for hernia repair on Thursday 05/03.
[2018-04-30] MEDS: Acetaminophen 325 MG Tablet PO PRN (20:59)
[2018-05-01] MEDS: Ciprofloxacin 400 MG/200 ML 400 MG/200 ML PIGGYBACK IV.SIG SCH ×3 (02:48→18:48)
[2018-05-01] MEDS: Pantoprazole Inj 40 MG Vial IV.PUSH SCH (05:15)
--- NOTE | 2018-05-01 11:23 | P.PN ---
Subjective Interval history: Follow-up for abdominal pain/nausea/vomiting/diarrhea with Salmonella and right inguinal hernia. Patient reports overall feeling much better. Denies any further nausea/vomiting or diarrhea. Denies fevers or chills. Still with discomfort at his inguinal hernia. He is tolerating oral intake. He has no other medical complaints at this time. Physical Exam Vital signs: Vital Signs 04/30/18 12:00 04/30/18 16:00 04/30/18 19:04 Temperature 98.3 F 98.8 F 98.2 F Pulse Rate 60 61 59 L Respiratory Rate 16 16 18 Blood Pressure 122/78 141/75 H 155/81 H Pulse Oximetry 96 97 97 04/30/18 23:07 05/01/18 03:35 05/01/18 08:00 Temperature 98.1 F 98.0 F 97.8 F Pulse Rate 59 L 58 L 61 Respiratory Rate 17 18 18 Blood Pressure 125/78 128/80 131/76 Pulse Oximetry 97 96 97 Intake & Output 04/30/18 05/01/18 05/01/18 18:59 06:59 18:59 Intake Total 400 / 400 500 / 500 Balance 400 / 400 500 / 500 Weight 52.1 kg Intake: IV 400 / 400 500 / 500 Cipro 400 MG/200 ML Inj 400 mg 200 / 200 400 / 400 In 200 ml @ 200 mls/hr IV.SIG Q8H DANYEL Rx#:[id number] Flagyl 500 MG Inj 100 ML @ 100 200 / 200 100 / 100 mls/hr IV.SIG Q8H DANYEL Rx#: [id number] Other: # Voids 1 Date of Last Bowel Movement 04/30/18 04/30/18 Weight On Admission 52.1 kg Narrative: GENERAL: Thin cachectic appearing middle aged male patient in [facility]. SKIN: Warm and dry. No rash. HEENT: Normocephalic. Atraumatic. Bitemporal wasting. Pupils equal and round. Mucous membranes pink and moist. CARDIOVASCULAR: Regular rate and rhythm. No murmur appreciated. RESPIRATORY: No accessory muscle use. Clear to auscultation. Breath sounds equal bilaterally. GASTROINTESTINAL: Abdomen soft, non-tender, nondistended. Normoactive bowel sounds x4. Bulging right inguinal hernia containing bowel, mildly tender to palpation. MUSCULOSKELETAL: No obvious deformities. Extremities without clubbing, cyanosis , or edema. NEUROLOGICAL: Awake and alert. No obvious cranial nerve deficits. Moving all extremities spontaneously. Normal speech. Results - Labs CBC & Chem 7: 04/28/18 08:02 04/29/18 16:48 Microbiology 04/26/18 19:21 Blood - Peripheral Aerobic Blood Culture - Final No growth in 5 days 04/26/18 19:21 Blood - Peripheral Anaerobic Blood Culture - Final No growth in 5 days 04/26/18 19:16 Blood - Peripheral Aerobic Blood Culture - Final No growth in 5 days 04/26/18 19:16 Blood - Peripheral Anaerobic Blood Culture - Final No growth in 5 days - Imaging Abdomen/Pelvis CT 04/25/18 00:00 CONCLUSION: 1. There is a large bowel containing right inguinal hernia which contains descending colon and cecum, as well as distal ileum. There is associated bowel wall thickening. 2. Hepatic steatosis, ascites, and upper abdominal varices identified. 3. Calcified splenic granulomas. Chest X-Ray 04/25/18 08:02 CONCLUSION: 1. Minimal atelectatic changes above the left hemidiaphragm. 2. Subacute to chronic appearing fractures through the lateral aspect of the left sixth and seventh ribs with callus formation. 3. Otherwise negative. No acute cardiopulmonary process Head CT 04/25/18 08:02 CONCLUSION: Negative exam. No change from prior. Barium Enema w/ Air Contrast, therapeutic 04/27/18 00:00 CONCLUSION: Mild diverticulosis. - Procedures 04/27/18EGD with Dr. Jacinto showed gastritis, duodenitis, esophagitis, hiatal hernia Assessment and Plan - Plan 57-year-old homeless male with history of alcohol abuse, tobacco use, presents with a 5 day history of intractable nausea/vomiting/diarrhea and a 2 day history of dizziness and falls. Abdominal pain/nausea/vomiting/diarrhea: Suspect gastroenteritis. +Fever with Tmax 102.2 -Abdominal CT with large bowel containing right inguinal hernia which contains descending colon and cecum, as well as distal ileum with associated bowel wall thickening; Hepatic steatosis, ascites, and upper abdominal varices identified. -Lipase and LFTs unremarkable -Hemoccult negative -Stool studies positive for Salmonella -Started on IV Cipro/Flagyl -C.diff negative -Monitor Is&Os -Supportive treatment with IVF, antiemetics, and pain control as needed -Consulted GI, appreciate assistance -04/27 s/p EGD showed gastritis, duodenitis, esophagitis, hiatal hernia -Symptoms improved, diet advanced, patient tolerating well Inguinal Hernia: CT as above shows large right inguinal hernia containing bowel - descending colon, cecum, and distal ileum with associated bowel wall thickening -Consult General Surgery, discussed with Dr. Milian and Meri LIRIANO, recommends hernia repair, planning tentatively for Thursday 05/03 Hypokalemia: K 2.3, secondary to GI losses from vomiting/diarrhea -Given total IV KCl boluses 20meq x4 doses, and an additional 80meq po -Repeat labs, replace electrolytes as needed Dizziness/Syncope/Headache/Falls: suspect multifactorial with alcohol withdrawal and dehydration. -Give IVF hydration -Orthostatic vital signs unremarkable -monitor on telemetry -pain control as needed -consult PT, recommends outpatient PT -symptoms much improved with improvement of GI complaints Alcohol Withdrawal: last drink 4 days prior to arrival. -Counseled on cessation -[facility] protocol -thiamine/folate/MV -seizure precautions -Monitor Tobacco Use: patient smokes 1 PPD -counseled on cessation -nicotine patch DVT Prophylaxis: teds/SCDs; avoid chemical prophylaxis with upcoming procedure. Discharge Planning: Discharge pending further clinical improvement. Treating for severe infection with Salmonella. General surgery planning for hernia repair on Thursday 05/03.
[2018-05-02] MEDS: Ciprofloxacin 400 MG/200 ML 400 MG/200 ML PIGGYBACK IV.SIG SCH ×3 (02:28→17:07)
[2018-05-02] MEDS: Acetaminophen 325 MG Tablet PO PRN ×3 (09:11→20:28)
--- NOTE | 2018-05-02 09:43 | P.PNGS ---
Subjective Interval history: Resting in bed; eager to get surgery done tomorrow; no complaints Physical Exam Vital signs: Vital Signs 05/01/18 12:00 05/01/18 16:00 05/01/18 20:00 Temperature 98.2 F 98.9 F 99.5 F Pulse Rate 64 73 71 Respiratory Rate 16 14 18 Blood Pressure 127/74 120/72 158/80 H Pulse Oximetry 97 99 97 05/02/18 00:00 05/02/18 08:00 Temperature 98.6 F 98.0 F Pulse Rate 74 65 Respiratory Rate 18 18 Blood Pressure 141/77 H 121/79 Pulse Oximetry 96 96 Intake & Output 05/01/18 05/02/18 05/02/18 18:59 06:59 18:59 Intake Total 400 / 400 500 / 500 Balance 400 / 400 500 / 500 Intake: IV 400 / 400 500 / 500 Cipro 400 MG/200 ML Inj 400 mg 200 / 200 400 / 400 In 200 ml @ 200 mls/hr IV.SIG Q8H DANYEL Rx#:[id number] Flagyl 500 MG Inj 100 ML @ 100 200 / 200 100 / 100 mls/hr IV.SIG Q8H DANYEL Rx#: [id number] Other: # Voids 1 0 Date of Last Bowel Movement 04/30/18 Narrative: Alert and awake Cardio: RRR Resp: CTAB Abd: non tender Assessment and Plan - Assessment (1) Right inguinal hernia Code(s): K40.90 - Unilateral inguinal hernia, without obstruction or gangrene, not specified as recurrent Status: Acute Plan: 57 year old male with reducible RIGHT inguinal hernia -Plan for OR tomorrow for open RIGHT inguinal hernia repair with mesh -Obtain consents -Stool studies now positive for Salmonella---on IV antibiotics -Diet as tolerated; NPO after MN -Hold anticoagulation -Patient understands and agrees with plan---discussed procedure including risks
--- NOTE | 2018-05-02 11:49 | P.PN ---
Subjective Interval history: Follow-up for abdominal pain/nausea/vomiting/diarrhea with Salmonella and right inguinal hernia. seen by general Surgery recommended for Right Inguinal hernia repair with mesh. Physical Exam Vital signs: Vital Signs 05/01/18 12:00 05/01/18 16:00 05/01/18 20:00 Temperature 98.2 F 98.9 F 99.5 F Pulse Rate 64 73 71 Respiratory Rate 16 14 18 Blood Pressure 127/74 120/72 158/80 H Pulse Oximetry 97 99 97 05/02/18 00:00 05/02/18 08:00 Temperature 98.6 F 98.0 F Pulse Rate 74 65 Respiratory Rate 18 18 Blood Pressure 141/77 H 121/79 Pulse Oximetry 96 96 Intake & Output 05/01/18 05/02/18 05/02/18 18:59 06:59 18:59 Intake Total 400 / 400 500 / 500 300 / 300 Balance 400 / 400 500 / 500 300 / 300 Intake: IV 400 / 400 500 / 500 300 / 300 Cipro 400 MG/200 ML Inj 400 mg 200 / 200 400 / 400 200 / 200 In 200 ml @ 200 mls/hr IV.SIG Q8H DANYEL Rx#:[id number] Flagyl 500 MG Inj 100 ML @ 100 200 / 200 100 / 100 100 / 100 mls/hr IV.SIG Q8H DANYEL Rx#: [id number] Other: # Voids 1 0 Date of Last Bowel Movement 04/30/18 Narrative: GENERAL: Thin cachectic appearing middle aged male patient in [facility]. SKIN: Warm and dry. No rash. HEENT: Normocephalic. Atraumatic. Bitemporal wasting. Pupils equal and round. Mucous membranes pink and moist. CARDIOVASCULAR: Regular rate and rhythm. No murmur appreciated. RESPIRATORY: No accessory muscle use. Clear to auscultation. Breath sounds equal bilaterally. GASTROINTESTINAL: Abdomen soft, non-tender, nondistended. Normoactive bowel sounds x4. Bulging right inguinal hernia containing bowel, mildly tender to palpation. MUSCULOSKELETAL: No obvious deformities. Extremities without clubbing, cyanosis , or edema. NEUROLOGICAL: Awake and alert. No obvious cranial nerve deficits. Moving all extremities spontaneously. Normal speech. Results - Labs CBC & Chem 7: 04/28/18 08:02 04/29/18 16:48 Microbiology 04/26/18 19:21 Blood - Peripheral Aerobic Blood Culture - Final No growth in 5 days 04/26/18 19:21 Blood - Peripheral Anaerobic Blood Culture - Final No growth in 5 days 04/26/18 19:16 Blood - Peripheral Aerobic Blood Culture - Final No growth in 5 days 04/26/18 19:16 Blood - Peripheral Anaerobic Blood Culture - Final No growth in 5 days - Imaging Abdomen/Pelvis CT 04/25/18 00:00 CONCLUSION: 1. There is a large bowel containing right inguinal hernia which contains descending colon and cecum, as well as distal ileum. There is associated bowel wall thickening. 2. Hepatic steatosis, ascites, and upper abdominal varices identified. 3. Calcified splenic granulomas. Chest X-Ray 04/25/18 08:02 CONCLUSION: 1. Minimal atelectatic changes above the left hemidiaphragm. 2. Subacute to chronic appearing fractures through the lateral aspect of the left sixth and seventh ribs with callus formation. 3. Otherwise negative. No acute cardiopulmonary process Head CT 04/25/18 08:02 CONCLUSION: Negative exam. No change from prior. Barium Enema w/ Air Contrast, therapeutic 04/27/18 00:00 CONCLUSION: Mild diverticulosis. - Procedures 04/27/18EGD with Dr. Jacinto showed gastritis, duodenitis, esophagitis, hiatal hernia Assessment and Plan - Plan 57-year-old homeless male with history of alcohol abuse, tobacco use, presents with a 5 day history of intractable nausea/vomiting/diarrhea and a 2 day history of dizziness and falls. Abdominal pain/nausea/vomiting/diarrhea: Suspect gastroenteritis. +Fever with Tmax 102.2 -Abdominal CT with large bowel containing right inguinal hernia which contains descending colon and cecum, as well as distal ileum with associated bowel wall thickening; Hepatic steatosis, ascites, and upper abdominal varices identified. -Stool studies positive for Salmonella -Started on IV Cipro/Flagyl -C.diff negative -04/27 s/p EGD showed gastritis, duodenitis, esophagitis, hiatal hernia -Symptoms improved, diet advanced, patient tolerating well Inguinal Hernia: CT as above shows large right inguinal hernia containing bowel - descending colon, cecum, and distal ileum with associated bowel wall thickening, with diagnosis of Unilateral Inguinal hernia, without obstruction or gangrene recommended for OR tomorrow for open right inguinal hernia repair with mesh. Hypokalemia: replaced today asked for Potassium level, Magnesium and Phosphorus not yet taken. Dizziness/Syncope/Headache/Falls: suspect multifactorial with alcohol withdrawal and dehydration. -Give IVF hydration -Orthostatic vital signs unremarkable -consult PT, recommends outpatient PT -symptoms much improved with improvement of GI complaints Alcohol Withdrawal: last drink 4 days prior to arrival. -Counseled on cessation -[facility]WA protocol - No signs of withdrawal. Tobacco Use: patient smokes 1 PPD -counseled on cessation -nicotine patch DVT Prophylaxis: teds/SCDs; avoid chemical prophylaxis with upcoming procedure. Code Status: Full Code. Discussed Condition With: Patient and nurse. Discharge Planning: Discharge pending further clinical improvement. Treating for severe infection with Salmonella. General surgery planning for hernia repair on Thursday 05/03.
--- NOTE | 2018-05-02 17:49 | US ---
EXAM DATE: 05/02/2018 5:41 PM EDT AGE/SEX: 57 years / Male INDICATIONS: Arm pain. CLINICAL DATA: This is the patient's initial encounter. Patient reports that signs and symptoms have been present for 1 day and indicates a pain score of 4/10. MEDICAL/SURGICAL HISTORY: . Alcohol withdrawal seizure. Right orbital fracture. . Facial surge ry. Cardiac catheterization. COMPARISON: No prior exams available for comparison. FINDINGS: Occlusive thrombus identified in the distal cephalic vein. Otherwise, the venous system is widely patent and fully compressible. Normal Doppler waveforms throughout. Other: None. CONCLUSION: 1. No DVT. 2. SVT with occlusive thrombus in the distal cephalic vein. This appears to be the site of a previou s IV. Electronically signed by: Will Casas MD 05/02/2018 5:48 PM EDT
[2018-05-03] MEDS: Ciprofloxacin 400 MG/200 ML 400 MG/200 ML PIGGYBACK IV.SIG SCH ×3 (02:33→19:25)
[2018-05-03] MEDS: Acetaminophen 325 MG Tablet PO PRN ×3 (05:45→21:01)
[2018-05-03 07:36] LABS: Anion Gap 7 meq/L (5-15); Blood Urea Nitrogen 10 mg/dL (7-18); Calcium 8.2 mg/dL (8.5-10.1); Carbon Dioxide 25.1 meq/L (21.0-32.0); Chloride 107 meq/L (98-107); Glomerular Filtration Rate Greater Than 89 mL/min (>89); Glucose,Random 98 mg/dL (74-106); Magnesium 1.9 mg/dL (1.5-2.5); Phosphorus 2.9 mg/dL (2.5-4.9); Potassium 3.7 meq/L (3.5-5.1); Sodium 139 meq/L (136-145)
--- NOTE | 2018-05-03 10:51 | P.PN ---
Subjective Interval history: Follow-up for abdominal pain/nausea/vomiting/diarrhea with Salmonella and right inguinal hernia. seen by general Surgery recommended for Right Inguinal hernia repair with mesh. Seen in his bedroom, the surgery was postpone until tomorrow due to busy OR schedule. no complaint by patient, no nausea, vomit or diarrhea. Physical Exam Vital signs: Vital Signs 05/02/18 12:00 05/02/18 16:00 05/02/18 20:00 Temperature 98.1 F 98.5 F 97.9 F Pulse Rate 75 72 67 Respiratory Rate 18 19 20 Blood Pressure 122/73 109/64 138/83 Pulse Oximetry 96 97 97 05/03/18 08:00 Temperature 97.9 F Pulse Rate 69 Respiratory Rate 19 Blood Pressure 155/90 H Pulse Oximetry 97 Intake & Output 05/02/18 05/03/18 05/03/18 18:59 06:59 18:59 Intake Total 700 / 700 100 / 100 400 / 400 Balance 700 / 700 100 / 100 400 / 400 Intake: IV 700 / 700 100 / 100 400 / 400 Cipro 400 MG/200 ML Inj 400 mg 400 / 400 200 / 200 In 200 ml @ 200 mls/hr IV.SIG Q8H DANYEL Rx#:[id number] Ancef Inj 1,000 MG In NS Inj 100 / 100 100 / 100 100 / 100 100 ML @ 200 mls/hr IV.SIG Q8H DANYEL Rx#:[id number] Flagyl 500 MG Inj 100 ML @ 100 200 / 200 100 / 100 mls/hr IV.SIG Q8H DANYEL Rx#: [id number] Other: # Voids 2 Date of Last Bowel Movement 05/01/18 05/01/18 # Bowel Movements 1 Narrative: Alert and awake Cardio: RRR Resp: CTAB Abd: soft non tender RIGHT inguinal hernia RUE edema Results - Labs CBC & Chem 7: 04/28/18 08:02 05/03/18 06:11 Laboratory Results - last 24 hr 05/03/18 06:11 Sodium 139 Potassium 3.7 Chloride 107 Carbon Dioxide 25.1 Anion Gap 7 BUN 10 Creatinine 0.67 Estimated GFR Greater than 89 Random Glucose 98 Calcium 8.2 L Phosphorus 2.9 Magnesium 1.9 - Imaging Impressions Venous Doppler Study 05/02/18 00:00 CONCLUSION: 1. No DVT. 2. SVT with occlusive thrombus in the distal cephalic vein. This appears to be the site of a previous IV. - Procedures 04/27/18EGD with Dr. Jacinto showed gastritis, duodenitis, esophagitis, hiatal hernia Assessment and Plan - Plan 57-year-old homeless male with history of alcohol abuse, tobacco use, presents with a 5 day history of intractable nausea/vomiting/diarrhea and a 2 day history of dizziness and falls. Abdominal pain/nausea/vomiting/diarrhea: Suspect gastroenteritis. +Fever with Tmax 102.2 -Abdominal CT with large bowel containing right inguinal hernia which contains descending colon and cecum, as well as distal ileum with associated bowel wall thickening; Hepatic steatosis, ascites, and upper abdominal varices identified. -Stool studies positive for Salmonella -Started on IV Cipro/Flagyl -C.diff negative -04/27 s/p EGD showed gastritis, duodenitis, esophagitis, hiatal hernia -Symptoms improved, diet advanced, patient tolerating well Inguinal Hernia: CT as above shows large right inguinal hernia containing bowel - descending colon, cecum, and distal ileum with associated bowel wall thickening, with diagnosis of Unilateral Inguinal hernia, without obstruction or gangrene recommended for OR tomorrow 05/04/18 for open right inguinal hernia repair with mesh. Dizziness/Syncope/Headache/Falls: suspect multifactorial with alcohol withdrawal and dehydration. -Give IVF hydration -Orthostatic vital signs unremarkable -consult PT, recommends outpatient PT -symptoms much improved with improvement of GI complaints Alcohol Withdrawal: last drink 4 days prior to arrival. -Counseled on cessation -[facility]WA protocol - No signs of withdrawal. Tobacco Use: patient smokes 1 PPD -counseled on cessation -nicotine patch Right upper arm edema has Superficial vein thrombosis, Occlusive thrombus in the distal cephalic vein, for local measurements. DVT Prophylaxis: teds/SCDs; avoid chemical prophylaxis with upcoming procedure. Code Status: Full Code. Discussed Condition With: Patient and nurse. Discharge Planning: Discharge pending further clinical improvement. Treating for severe infection with Salmonella. General surgery planning for hernia repair on Thursday 05/03.
--- NOTE | 2018-05-03 15:27 | P.PNGS ---
Subjective Interval history: Upset about being NPO Physical Exam Vital signs: Vital Signs 05/02/18 16:00 05/02/18 20:00 05/03/18 08:00 Temperature 98.5 F 97.9 F 97.9 F Pulse Rate 72 67 69 Respiratory Rate 19 20 19 Blood Pressure 109/64 138/83 155/90 H Pulse Oximetry 97 97 97 05/03/18 12:00 Temperature 98.1 F Pulse Rate 62 Respiratory Rate 18 Blood Pressure 128/77 Pulse Oximetry 98 Intake & Output 05/02/18 05/03/18 05/03/18 18:59 06:59 18:59 Intake Total 700 / 700 100 / 100 800 / 800 Balance 700 / 700 100 / 100 800 / 800 Intake: IV 700 / 700 100 / 100 800 / 800 Cipro 400 MG/200 ML Inj 400 mg 400 / 400 400 / 400 In 200 ml @ 200 mls/hr IV.SIG Q8H DANYEL Rx#:[id number] Ancef Inj 1,000 MG In NS Inj 100 / 100 100 / 100 200 / 200 100 ML @ 200 mls/hr IV.SIG Q8H DANYEL Rx#:[id number] Flagyl 500 MG Inj 100 ML @ 100 200 / 200 200 / 200 mls/hr IV.SIG Q8H DANYEL Rx#: [id number] Other: # Voids 2 Date of Last Bowel Movement 05/01/18 05/01/18 # Bowel Movements 1 Narrative: Alert and awake Cardio: RRR Resp: CTAB Abd: soft non tender RIGHT inguinal hernia RUE edema Assessment and Plan - Assessment (1) Right inguinal hernia Code(s): K40.90 - Unilateral inguinal hernia, without obstruction or gangrene, not specified as recurrent Status: Acute Plan: 57 year old male with reducible RIGHT inguinal hernia -OR delayed; will postpone surgery until tomorrow -Regular diet; NPO after MN -Plan for OR tomorrow for open RIGHT inguinal hernia repair with mesh -Obtain consents -Stool studies now positive for Salmonella---on IV antibiotics -Hold anticoagulation -Patient understands and agrees with plan---discussed procedure including risks
[2018-05-03 23:52] LABS: Hepatitis C RNA (PCR) log IUs 4.34
[2018-05-04] MEDS ORDERED: Chlorhexidine Gluconate 2% 1 Pack (2 Cloths) TOPICAL SCH (01:15)
[2018-05-04] MEDS: Ciprofloxacin 400 MG/200 ML 400 MG/200 ML PIGGYBACK IV.SIG SCH ×3 (02:53→18:39)
[2018-05-04] MEDS: Acetaminophen 325 MG Tablet PO PRN ×3 (06:04→18:41)
[2018-05-04] MEDS ORDERED: Lidocaine PF 1% Inj 5 ML Syringe INFILTRATN ONE (12:00)
--- NOTE | 2018-05-04 14:38 | P.PN ---
Subjective Interval history: Follow-up for abdominal pain/nausea/vomiting/diarrhea with Salmonella and right inguinal hernia. seen by general Surgery recommended for Right Inguinal hernia repair with mesh. stable in his bedroom discussed with nurse and with Patient, awaiting for surgery, no nausea, vomit or diarrhea. Physical Exam Vital signs: Vital Signs 05/03/18 16:00 05/03/18 20:00 05/04/18 00:00 Temperature 98.1 F 98.6 F 98 F Pulse Rate 65 90 64 Respiratory Rate 18 18 Blood Pressure 144/92 H 117/60 129/69 Pulse Oximetry 97 96 96 05/04/18 08:00 05/04/18 12:00 Temperature 97.9 F 98.1 F Pulse Rate 57 L 64 Respiratory Rate 18 16 Blood Pressure 128/73 127/72 Pulse Oximetry 96 97 Intake & Output 05/03/18 05/04/18 05/04/18 18:59 06:59 18:59 Intake Total 800 / 800 940 / 940 100 / 100 Balance 800 / 800 940 / 940 100 / 100 Weight 51.8 kg Intake: IV 800 / 800 700 / 700 100 / 100 Cipro 400 MG/200 ML Inj 400 mg 400 / 400 400 / 400 In 200 ml @ 200 mls/hr IV.SIG Q8H DANYEL Rx#:[id number] Ancef Inj 1,000 MG In NS Inj 200 / 200 100 / 100 100 / 100 100 ML @ 200 mls/hr IV.SIG Q8H DANYEL Rx#:[id number] Flagyl 500 MG Inj 100 ML @ 100 200 / 200 200 / 200 mls/hr IV.SIG Q8H DANYEL Rx#: [id number] Oral 240 / 240 Narrative: Alert and awake Cardio: RRR Resp: CTAB Abd: soft non tender RIGHT inguinal hernia RUE edema Results - Labs CBC & Chem 7: 04/28/18 08:02 05/03/18 06:11 Laboratory Results - last 24 hr 04/28/18 14:37 HCV RNA (PCR) IUs/ml 05830 H HCV RNA PCR log IUs/ml 4.34 H - Procedures 04/27/18EGD with Dr. Jacinto showed gastritis, duodenitis, esophagitis, hiatal hernia Assessment and Plan - Plan 57-year-old homeless male with history of alcohol abuse, tobacco use, presents with a 5 day history of intractable nausea/vomiting/diarrhea and a 2 day history of dizziness and falls. Abdominal pain/nausea/vomiting/diarrhea: Suspect gastroenteritis. +Fever with Tmax 102.2 -Abdominal CT with large bowel containing right inguinal hernia which contains descending colon and cecum, as well as distal ileum with associated bowel wall thickening; Hepatic steatosis, ascites, and upper abdominal varices identified. -Stool studies positive for Salmonella -Started on IV Cipro/Flagyl -C.diff negative -04/27 s/p EGD showed gastritis, duodenitis, esophagitis, hiatal hernia -Symptoms improved, diet advanced, patient tolerating well Inguinal Hernia: CT as above shows large right inguinal hernia containing bowel - descending colon, cecum, and distal ileum with associated bowel wall thickening, with diagnosis of Unilateral Inguinal hernia, without obstruction or gangrene recommended for OR tomorrow 05/04/18 for open right inguinal hernia repair with mesh. Dizziness/Syncope/Headache/Falls: suspect multifactorial with alcohol withdrawal and dehydration. -Give IVF hydration -Orthostatic vital signs unremarkable -consult PT, recommends outpatient PT -symptoms much improved with improvement of GI complaints Alcohol Withdrawal: last drink 4 days prior to arrival. -Counseled on cessation -CIWA protocol - No signs of withdrawal. Tobacco Use: patient smokes 1 PPD -counseled on cessation -nicotine patch Right upper arm edema has Superficial vein thrombosis, Occlusive thrombus in the distal cephalic vein, for local measurements. Hypokalemia 3.4 for replacement the patient refuse potassium IV but accepted by mouth will be replaced after surgery try to keep potassium in 4 or over and magnesium in 2 or over. DVT Prophylaxis: teds/SCDs; avoid chemical prophylaxis with upcoming procedure. Code Status: Full code. Discussed Condition With: Patient and nurse in the room. Discharge Planning: Once cleared by General surgery
[2018-05-04] MEDS ORDERED: Bupivacaine/Epinephrine Inj 0.25% 50 ML Vial ONE (16:33)
[2018-05-04] MEDS ORDERED: fentaNYL Citrate Inj 250 MCG/5 ML Ampul ONE (18:57)
--- NOTE | 2018-05-04 22:47 | MP ---
cc: Fabrice Milian MD DATE OF OPERATION: 05/04/2018 PREOPERATIVE DIAGNOSIS: Large right inguinal hernia with history of incarceration. POSTOPERATIVE DIAGNOSES: 1. Large right indirect inguinal hernia with history of incarceration. 2. Hydrocele of right testicle. PROCEDURES PERFORMED: 1. Right open inguinal hernia repair with mesh. 2. Repair of right hydrocele of the testicle. ANESTHESIA: General and local anesthetic. ATTENDING SURGEON: Fabrice Milian MD PATTERN REPAIR PERSON: Staff. ESTIMATED BLOOD LOSS: 25 mL COMPLICATIONS: None. INDICATIONS FOR PROCEDURE: The patient is a 57-year-old male who presented to the emergency department with nausea, vomiting, and diarrhea and abdominal pain. The patient on evaluation was found to have incarcerated hernia. General surgery was consulted. However upon general surgical evaluation, this hernia was found to be reducible, and the patient described reducing it himself. The patient also was diagnosed with a salmonella gastrointestinal infection which required hospitalization for treatment. The patient has since recovered from his infection and was recommended to undergo hernia repair while inpatient due to risk of recurrent incarceration. Risks, benefits, and alternatives to hernia repair were discussed with the patient including recurrence risk, chronic pain, bleeding, infection including mesh infection, and complications, and the patient agreed to undergo the procedure. DESCRIPTION OF PROCEDURE: The patient was taken to the operating room and placed in the supine position and placed under general endotracheal anesthesia. The patient's abdomen, groin, and scrotum were shaved, prepped, and draped in a sterile fashion. The timeout was performed. Local anesthetic was instilled in the planned incision site as well as laterally to assist in regional anesthesia. I made a 6 cm horizontal incision over the right groin above the groin crease with a 15 blade scalpel. Bovie electrocautery was used to dissect the subcutaneous tissue, and the subcutaneous veins were cauterized. We opened the external oblique fascia with Metzenbaums down to the external ring. We dissected the hernia sac and the cord structures off the Poupart ligament and the inguinal floor muscles. This hernia sac was very large and chronically and densely scarred to the cord and extended all the way down to the testicle. We did actually reduce the testicle from the right side of the scrotum into our operative field to find the very distal part of the hernia sac. Upon exploration, we found the patient had a hydrocele of the right testicle that was a noncommunicating hydrocele of moderate size. It was not communicating with the hernia sac. We did reduce the hernia sac off the cord structures, and this was resected in approximately 3 separate areas as we peeled it off the cord structures and was discarded as this appeared to be benign hernia sac. Once we got down to the internal ring, we did place a 2-0 pursestring suture around the sac to effectively close this and reduce this into the internal ring, closing off the intraperitoneal compartment. We were then able to open this hydrocele and resected all of the hydrocele sac that was not associated with the testicle. I did have some stretching as well as some cautery injury to some of the cord structures as well as some bleeding. This required us to tie this off with some Vicryl sutures. The testicle appeared perfused and viable. We packed this back into the scrotum with a 3-0 Vicryl suture and reduced it back into the scrotum without difficulty. We then turned our attention toward placing a mesh. I custom-cut a piece of [employer]rium polypropylene lightweight mesh to match the patient's anatomy. This was in a bullet-type form with a slit in the middle with 2 tails. This was sewn in place, starting medially at the lacunar ligament, inferior at Poupart ligament, and superior at the transversalis fascia with interrupted 0 Prolene sutures. We reduced the cord into our slit and closed with the tails together with the Prolene sutures as well and reduced this into the tissue plane under the external oblique muscle. Again, the cord structures lay in good condition over the mesh in normal anatomic format. We did make an attempt earlier in the procedure when opening the external oblique but also during the sac dissection to identify a definitive ilioinguinal nerve, and this was never identified, likely due to the severe thickened scar tissue that obscured this nerve. We did then close the external oblique fascia with a running 2-0 Vicryl suture. We closed the Rachel fascia with a running 2-0 Vicryl suture. We closed the skin with 4-0 Monocryl, and Dermabond was applied. Scrotal support was applied. The patient was taken to the PACU in stable condition. I was present and scrubbed for the entire procedure. The patient tolerated the procedure well. No apparent complications. All counts were correct. MD ADRIENNE Blanchard/burak , 09:37 PM , 09:52 PM
[2018-05-05] MEDS: Ciprofloxacin 400 MG/200 ML 400 MG/200 ML PIGGYBACK IV.SIG SCH ×2 (01:05→11:02)
--- NOTE | 2018-05-05 11:15 | P.PN ---
Subjective Interval history: This is a pleasant 57 y/o Male seen in house due to abdominal pain/nausea/ vomiting/diarrhea with Salmonella and right inguinal hernia. With Diagnosis of Large right indirect inguinal hernia with history of incarceration, Hydrocele of right testicle Status post Large right inguinal Hernia with history of incarceration, 05/04/18 [address] Doctor Fabrice Milian. 05/05: Seen the patient walking in the aisle with Physical Therapy, no complaint , General Surgery following recommended regular diet, POD#1, antibiotics for Salmonella, Athletic support for 10 to 14 days, awaiting final for discharge. No Nausea, vomit or diarrhea. Physical Exam Vital signs: Vital Signs 05/04/18 12:00 05/04/18 16:00 05/04/18 21:25 Temperature 98.1 F 98.5 F 97.8 F Pulse Rate 64 71 93 H Respiratory Rate 16 16 14 Blood Pressure 127/72 134/89 138/75 Pulse Oximetry 97 96 97 05/04/18 21:30 05/04/18 21:45 05/04/18 22:00 Temperature Pulse Rate 90 74 74 Respiratory Rate 14 14 16 Blood Pressure 129/77 143/84 H 141/81 H Pulse Oximetry 97 99 99 05/04/18 22:15 05/05/18 00:00 05/05/18 04:00 Temperature 97.7 F 97.7 F 98.7 F Pulse Rate 74 87 79 Respiratory Rate 16 18 18 Blood Pressure 132/84 128/82 Pulse Oximetry 97 97 95 05/05/18 08:00 05/05/18 09:41 05/05/18 11:00 Temperature 97.8 F Pulse Rate 85 Respiratory Rate 17 18 18 Blood Pressure 117/75 Pulse Oximetry 97 Intake & Output 05/04/18 05/05/18 05/05/18 18:59 06:59 18:59 Intake Total 500 / 500 2019 / 2020 1100 / 1100 Output Total 570 / 570 Balance 500 / 500 1450 / 1450 1100 / 1100 Weight 57.2 kg Intake: IV 500 / 500 700 / 700 1100 / 1100 Cipro 400 MG/200 ML Inj 400 mg 200 / 200 400 / 400 In 200 ml @ 200 mls/hr IV.SIG Q8H DANYEL Rx#:[id number] LR 1000 mL Inj 1,000 ML @ 30 1000 / 1000 mls/hr IV.SIG .Q24H DANYEL Rx#: [id number] Ancef Inj 1,000 MG In NS Inj 200 / 200 100 / 100 100 ML @ 200 mls/hr IV.SIG Q8H DANYEL Rx#:[id number] Flagyl 500 MG Inj 100 ML @ 100 100 / 100 200 / 200 100 / 100 mls/hr IV.SIG Q8H DANYEL Rx#: [id number] Oral 0 / 0 320 / 320 Anesthesia Amount 1000 / 1000 Output: Urine 550 / 550 Estimated Blood Loss 20 / 20 Other: # Voids 2 Date of Last Bowel Movement 05/01/18 # Bowel Movements 1 Narrative: Alert and awake Cardio: RRR Resp: CTAB Abd: soft, clean surgical wound. RIGHT inguinal area with surgical wound healing properly. RUE edema Results - Labs CBC & Chem 7: 04/28/18 08:02 05/03/18 06:11 Laboratory Results - last 24 hr 04/28/18 14:37 HCV RNA Genotype 1 - Procedures 04/27/18EGD with Dr. Jacinto showed gastritis, duodenitis, esophagitis, hiatal hernia DATE OF OPERATION: 05/04/2018 PREOPERATIVE DIAGNOSIS: Large right inguinal hernia with history of incarceration. POSTOPERATIVE DIAGNOSES: 1. Large right indirect inguinal hernia with history of incarceration. 2. Hydrocele of right testicle. PROCEDURES PERFORMED: 1. Right open inguinal hernia repair with mesh. 2. Repair of right hydrocele of the testicle. ANESTHESIA: General and local anesthetic. ATTENDING SURGEON: Fabrice Milian MD Assessment and Plan - Plan 57-year-old homeless male with history of alcohol abuse, tobacco use, presents with a 5 day history of intractable nausea/vomiting/diarrhea and a 2 day history of dizziness and falls. Abdominal pain/nausea/vomiting/diarrhea: Suspect gastroenteritis. +Fever with Tmax 102.2 -Abdominal CT with large bowel containing right inguinal hernia which contains descending colon and cecum, as well as distal ileum with associated bowel wall thickening; Hepatic steatosis, ascites, and upper abdominal varices identified. -Stool studies positive for Salmonella -Started on IV Cipro/Flagyl discontinued 05/05/18. -C.diff negative -04/27 s/p EGD showed gastritis, duodenitis, esophagitis, hiatal hernia -Symptoms improved, diet advanced, patient tolerating well Inguinal Hernia: CT as above shows large right inguinal hernia containing bowel - descending colon, cecum, and distal ileum with associated bowel wall thickening, with diagnosis of Unilateral Inguinal hernia, without obstruction or gangrene Status post inguinal hernia repair. Dizziness/Syncope/Headache/Falls: suspect multifactorial with alcohol withdrawal and dehydration. -Give IVF hydration -Orthostatic vital signs unremarkable -working with PT no complaint. Alcohol Withdrawal: last drink 4 days prior to arrival. -Counseled on cessation -CIWA protocol - No signs of withdrawal. Tobacco Use: patient smokes 1 PPD -counseled on cessation -nicotine patch Right upper arm edema has Superficial vein thrombosis, Occlusive thrombus in the distal cephalic vein, for local measurements. DVT Prophylaxis: teds/SCDs Code Status: full code. Discussed Condition With: patient, and Physical Therapy and on MDR. Discharge Planning: Once cleared by General surgery
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
--- NOTE | 2018-05-05 13:46 | P.PNGS ---
<LiliMeri - Last Filed: 05/05/18 13:42> Subjective Interval history: Upset with news from EGD report about precancerous polyps In moderate about of pain s/p hernia repair Physical Exam Vital signs: Vital Signs 05/04/18 16:00 05/04/18 21:25 05/04/18 21:30 Temperature 98.5 F 97.8 F Pulse Rate 71 93 H 90 Respiratory Rate 16 14 14 Blood Pressure 134/89 138/75 129/77 Pulse Oximetry 96 97 97 05/04/18 21:45 05/04/18 22:00 05/04/18 22:15 Temperature 97.7 F Pulse Rate 74 74 74 Respiratory Rate 14 16 16 Blood Pressure 143/84 H 141/81 H Pulse Oximetry 99 99 97 05/05/18 00:00 05/05/18 04:00 05/05/18 08:00 Temperature 97.7 F 98.7 F 97.8 F Pulse Rate 87 79 85 Respiratory Rate 18 18 17 Blood Pressure 132/84 128/82 117/75 Pulse Oximetry 97 95 97 05/05/18 09:41 05/05/18 11:00 Temperature Pulse Rate Respiratory Rate 18 18 Blood Pressure Pulse Oximetry Intake & Output 05/04/18 05/05/18 05/05/18 18:59 06:59 18:59 Intake Total 1500 / 1500 2019 / 2020 1401 / 1401 Output Total 570 / 570 Balance 1500 / 1500 1450 / 1450 1401 / 1401 Weight 57.2 kg Intake: IV 1500 / 1500 700 / 700 1401 / 1401 Cipro 400 MG/200 ML Inj 400 mg 200 / 200 400 / 400 200 / 200 In 200 ml @ 200 mls/hr IV.SIG Q8H DANYEL Rx#:[id number] LR 1000 mL Inj 1,000 ML @ 30 1000 / 1000 1000 / 1000 mls/hr IV.SIG .Q24H DANYEL Rx#: [id number] Ancef Inj 1,000 MG In NS Inj 200 / 200 100 / 100 100 ML @ 200 mls/hr IV.SIG Q8H DANYEL Rx#:[id number] Flagyl 500 MG Inj 100 ML @ 100 100 / 100 200 / 200 100 / 100 mls/hr IV.SIG Q8H DANYEL Rx#: [id number] Oral 0 / 0 320 / 320 Anesthesia Amount 1000 / 1000 Output: Urine 550 / 550 Estimated Blood Loss Other: # Voids 2 Date of Last Bowel Movement 05/01/18 # Bowel Movements 1 Narrative: Alert and awake Cardio: RRR Resp: CTAB Abd: soft RIGHT groin --- incision c/d/i with Dermabond in place; Athletic supporter on; bruising noted of the scrotum Assessment and Plan - Assessment (1) Right inguinal hernia Code(s): K40.90 - Unilateral inguinal hernia, without obstruction or gangrene, not specified as recurrent Status: Acute Plan: 57 year old male with reducible RIGHT inguinal hernia -POD1 RIGHT open hernia repair -Regular diet -Antibiotics per primary team regarding Salmonella -OOB and mobilize -Athletic support for 10-14 days -Pain control -CM consult <Fabrice Milian - Last Filed: 05/22/18 19:30> Assessment and Plan - Assessment (1) Right inguinal hernia Code(s): K40.90 - Unilateral inguinal hernia, without obstruction or gangrene, not specified as recurrent Status: Acute - Attending Attestation The exam, history, and the medical decision-making described in the above note were completed with the assistance of the mid-level provider. I reviewed and agree with the findings presented. I attest that I had a [id number] encounter with the patient on the same day, and personally performed and documented my assessment and findings in the medical record. 57yo male with large incarcerated inguinal hernia s/p repair with mesh postop stable pain controlled
--- NOTE | 2018-05-06 14:06 | P.PNGS ---
Subjective Interval history: Painful Physical Exam Vital signs: Vital Signs 05/05/18 16:00 05/05/18 20:00 05/06/18 00:00 Temperature 98.1 F 98.4 F 98.8 F Pulse Rate 91 H 94 H 90 Respiratory Rate 17 18 18 Blood Pressure 144/82 H 134/83 125/69 Pulse Oximetry 98 96 95 05/06/18 08:00 05/06/18 08:43 05/06/18 09:13 Temperature 98.0 F Pulse Rate 80 Respiratory Rate 18 18 18 Blood Pressure 114/74 Pulse Oximetry 95 05/06/18 12:00 05/06/18 13:50 Temperature 97.9 F Pulse Rate 83 Respiratory Rate 18 18 Blood Pressure 131/67 Pulse Oximetry 97 Intake & Output 05/05/18 05/06/18 05/06/18 18:59 06:59 18:59 Intake Total 1501 / 1501 200 / 200 Balance 1501 / 1501 200 / 200 Weight 57.3 kg Intake: IV 1501 / 1501 200 / 200 Cipro 400 MG/200 ML Inj 400 mg 200 / 200 In 200 ml @ 200 mls/hr IV.SIG Q8H DANYEL Rx#:[id number] LR 1000 mL Inj 1,000 ML @ 30 1000 / 1000 mls/hr IV.SIG .Q24H DANYEL Rx#: [id number] Ancef Inj 1,000 MG In NS Inj 100 / 100 200 / 200 100 ML @ 200 mls/hr IV.SIG Q8H DANYEL Rx#:[id number] Flagyl 500 MG Inj 100 ML @ 100 100 / 100 mls/hr IV.SIG Q8H DANYEL Rx#: [id number] Narrative: Alert and awake Cardio: RRR Resp: CTAB Abd: soft RIGHT groin incision c/d/i; bruising of scrotum Assessment and Plan - Assessment (1) Right inguinal hernia Code(s): K40.90 - Unilateral inguinal hernia, without obstruction or gangrene, not specified as recurrent Status: Acute Plan: 57 year old male with reducible RIGHT inguinal hernia -POD2 RIGHT open hernia repair -Regular diet -OOB and mobilize -Athletic support for 10-14 days -Pain control -CM consult -Hopefully home in the next 48-72 hours when pain controlled -GS will see peripherally over the weekend; please call with questions
--- NOTE | 2018-05-06 15:04 | P.PN ---
Subjective Interval history: This is a pleasant 57 y/o Male seen in house due to abdominal pain/nausea/ vomiting/diarrhea with Salmonella and right inguinal hernia. With Diagnosis of Large right indirect inguinal hernia with history of incarceration, Hydrocele of right testicle Status post Large right inguinal Hernia with history of incarceration, 05/04/[address] Fabrice Milian. 05/05: Seen the patient walking in the aisle with Physical Therapy, no complaint , General Surgery following recommended regular diet, POD#1, antibiotics for Salmonella, Athletic support for 10 to 14 days. 05/06: Stable in his bedroom, complaint of Pain on Right inguinal area, seen by General Surgery recommended to stay in house and probable discharge in the next two to three days. has constipation will have laxative at this time. Physical Exam Vital signs: Vital Signs 05/05/18 16:00 05/05/18 20:00 05/06/18 00:00 Temperature 98.1 F 98.4 F 98.8 F Pulse Rate 91 H 94 H 90 Respiratory Rate 17 18 18 Blood Pressure 144/82 H 134/83 125/69 Pulse Oximetry 98 96 95 05/06/18 08:00 05/06/18 08:43 05/06/18 09:13 Temperature 98.0 F Pulse Rate 80 Respiratory Rate 18 18 18 Blood Pressure 114/74 Pulse Oximetry 95 05/06/18 12:00 05/06/18 13:50 05/06/18 14:20 Temperature 97.9 F Pulse Rate 83 Respiratory Rate 18 18 18 Blood Pressure 131/67 Pulse Oximetry 97 Intake & Output 05/05/18 05/06/18 05/06/18 18:59 06:59 18:59 Intake Total 1501 / 1501 200 / 200 100 / 100 Balance 1501 / 1501 200 / 200 100 / 100 Weight 57.3 kg Intake: IV 1501 / 1501 200 / 200 100 / 100 Cipro 400 MG/200 ML Inj 400 mg 200 / 200 In 200 ml @ 200 mls/hr IV.SIG Q8H DANYEL Rx#:[id number] LR 1000 mL Inj 1,000 ML @ 30 1000 / 1000 mls/hr IV.SIG .Q24H DANYEL Rx#: [id number] Ancef Inj 1,000 MG In NS Inj 100 / 100 200 / 200 100 / 100 100 ML @ 200 mls/hr IV.SIG Q8H DANYEL Rx#:[id number] Flagyl 500 MG Inj 100 ML @ 100 100 / 100 mls/hr IV.SIG Q8H DANYEL Rx#: [id number] Other: Date of Last Bowel Movement 05/02/18 Narrative: Alert and awake Cardio: RRR Resp: CTAB Abd: soft, clean surgical wound. RIGHT inguinal area with surgical wound healing properly. RUE edema Results - Labs CBC & Chem 7: 04/28/18 08:02 05/03/18 06:11 - Procedures 04/27/18EGD with Dr. Jacinto showed gastritis, duodenitis, esophagitis, hiatal hernia DATE OF OPERATION: 05/04/2018 PREOPERATIVE DIAGNOSIS: Large right inguinal hernia with history of incarceration. POSTOPERATIVE DIAGNOSES: 1. Large right indirect inguinal hernia with history of incarceration. 2. Hydrocele of right testicle. PROCEDURES PERFORMED: 1. Right open inguinal hernia repair with mesh. 2. Repair of right hydrocele of the testicle. ANESTHESIA: General and local anesthetic. ATTENDING SURGEON: Fabrice Milian MD Assessment and Plan - Plan 57-year-old homeless male with history of alcohol abuse, tobacco use, presents with a 5 day history of intractable nausea/vomiting/diarrhea and a 2 day history of dizziness and falls. Abdominal pain/nausea/vomiting/diarrhea: Suspect gastroenteritis. +Fever with Tmax 102.2 -Abdominal CT with large bowel containing right inguinal hernia which contains descending colon and cecum, as well as distal ileum with associated bowel wall thickening; Hepatic steatosis, ascites, and upper abdominal varices identified. -Stool studies positive for Salmonella -Started on IV Cipro/Flagyl discontinued 05/05/18. -C.diff negative -04/27 s/p EGD showed gastritis, duodenitis, esophagitis, hiatal hernia -Symptoms improved, diet advanced, patient tolerating well Inguinal Hernia: CT as above shows large right inguinal hernia containing bowel - descending colon, cecum, and distal ileum with associated bowel wall thickening, with diagnosis of Unilateral Inguinal hernia, without obstruction or gangrene Status post inguinal hernia repair POD#2, not yet cleared by General Surgery. Dizziness/Syncope/Headache/Falls: suspect multifactorial with alcohol withdrawal and dehydration. -Give IVF hydration -Orthostatic vital signs unremarkable -working with PT no complaint. Alcohol Withdrawal: last drink 4 days prior to arrival. -Counseled on cessation -CIWA protocol - No signs of withdrawal. Tobacco Use: patient smokes 1 PPD -counseled on cessation -nicotine patch Right upper arm edema has Superficial vein thrombosis, Occlusive thrombus in the distal cephalic vein, for local measurements. DVT Prophylaxis: teds/SCDs Code Status: Full Code. Discussed Condition With: Patient and nurse. Discharge Planning: Once cleared by General surgery
--- NOTE | 2018-05-07 14:33 | P.PN ---
Subjective Interval history: This is a pleasant 57 y/o Male seen in house due to abdominal pain/nausea/ vomiting/diarrhea with Salmonella and right inguinal hernia. With Diagnosis of Large right indirect inguinal hernia with history of incarceration, Hydrocele of right testicle Status post Large right inguinal Hernia with history of incarceration, 05/04/[address] Fabrice Milian. 05/05: Seen the patient walking in the aisle with Physical Therapy, no complaint , General Surgery following recommended regular diet, POD#1, antibiotics for Salmonella, Athletic support for 10 to 14 days. 05/06: Stable in his bedroom, complaint of Pain on Right inguinal area, seen by General Surgery recommended to stay in house and probable discharge in the next two to three days. has constipation will have laxative at this time. 05/07: stable in his bedroom, no nausea, vomit or diarrhea. Physical Exam Vital signs: Vital Signs 05/06/18 16:00 05/06/18 20:23 05/07/18 00:21 Temperature 97.3 F L 98.4 F 98.3 F Pulse Rate 104 H 79 83 Respiratory Rate 18 17 17 Blood Pressure 129/89 147/80 H 120/76 Pulse Oximetry 97 96 97 05/07/18 08:00 05/07/18 12:00 Temperature 98.2 F 99.1 F Pulse Rate 77 79 Respiratory Rate 18 18 Blood Pressure 121/77 138/83 Pulse Oximetry 95 97 Intake & Output 05/06/18 05/07/18 05/07/18 18:59 06:59 18:59 Intake Total 1360 / 1360 880 / 880 100 / 100 Balance 1360 / 1360 880 / 880 100 / 100 Weight 58.7 kg Intake: IV 100 / 100 200 / 200 100 / 100 Ancef Inj 1,000 MG In NS Inj 100 / 100 200 / 200 100 / 100 100 ML @ 200 mls/hr IV.SIG Q8H DANYEL Rx#:[id number] Oral 1260 / 1260 680 / 680 Other: # Voids 8 1 Date of Last Bowel Movement 05/02/18 05/06/18 # Bowel Movements 1 Narrative: Alert and awake Cardio: RRR Resp: CTAB Abd: soft, clean surgical wound. RIGHT inguinal area with surgical wound healing properly. RUE edema Results - Labs CBC & Chem 7: 04/28/18 08:02 05/03/18 06:11 - Procedures 04/27/18EGD with Dr. Jacinto showed gastritis, duodenitis, esophagitis, hiatal hernia DATE OF OPERATION: 05/04/2018 PREOPERATIVE DIAGNOSIS: Large right inguinal hernia with history of incarceration. POSTOPERATIVE DIAGNOSES: 1. Large right indirect inguinal hernia with history of incarceration. 2. Hydrocele of right testicle. PROCEDURES PERFORMED: 1. Right open inguinal hernia repair with mesh. 2. Repair of right hydrocele of the testicle. ANESTHESIA: General and local anesthetic. ATTENDING SURGEON: Fabrice Milian MD Assessment and Plan - Plan 57-year-old homeless male with history of alcohol abuse, tobacco use, presents with a 5 day history of intractable nausea/vomiting/diarrhea and a 2 day history of dizziness and falls. Abdominal pain/nausea/vomiting/diarrhea: Suspect gastroenteritis. +Fever with Tmax 102.2 -Abdominal CT with large bowel containing right inguinal hernia which contains descending colon and cecum, as well as distal ileum with associated bowel wall thickening; Hepatic steatosis, ascites, and upper abdominal varices identified. -Stool studies positive for Salmonella -Started on IV Cipro/Flagyl discontinued 05/05/18. -C.diff negative -04/27 s/p EGD showed gastritis, duodenitis, esophagitis, hiatal hernia -Symptoms improved, diet advanced, patient tolerating well Inguinal Hernia: CT as above shows large right inguinal hernia containing bowel - descending colon, cecum, and distal ileum with associated bowel wall thickening, with diagnosis of Unilateral Inguinal hernia, without obstruction or gangrene Status post inguinal hernia repair POD#3, not yet cleared by General Surgery. Dizziness/Syncope/Headache/Falls: suspect multifactorial with alcohol withdrawal and dehydration. -Give IVF hydration -Orthostatic vital signs unremarkable -working with PT no complaint. Alcohol Withdrawal: last drink 4 days prior to arrival. -Counseled on cessation -CIWA protocol - No signs of withdrawal. Tobacco Use: patient smokes 1 PPD -counseled on cessation -nicotine patch Right upper arm edema has Superficial vein thrombosis, Occlusive thrombus in the distal cephalic vein, for local measurements. DVT Prophylaxis: teds/SCDs Code Status: Full Code Discussed Condition With: Patient and nurse. Discharge Planning: Once cleared by General surgery
--- NOTE | 2018-05-08 08:44 | P.PN ---
Subjective Interval history: This is a pleasant 57 y/o Male seen in house due to abdominal pain/nausea/ vomiting/diarrhea with Salmonella and right inguinal hernia. With Diagnosis of Large right indirect inguinal hernia with history of incarceration, Hydrocele of right testicle Status post Large right inguinal Hernia with history of incarceration, 05/04/[address] Fabrice Milian. 05/05: Seen the patient walking in the aisle with Physical Therapy, no complaint , General Surgery following recommended regular diet, POD#1, antibiotics for Salmonella, Athletic support for 10 to 14 days. 05/06: Stable in his bedroom, complaint of Pain on Right inguinal area, seen by General Surgery recommended to stay in house and probable discharge in the next two to three days. has constipation will have laxative at this time. 05/07: stable in his bedroom. 05/08: Patient comfortable in his bedroom, no complaint, awaiting final by General surgery for discharge no nausea, vomit or diarrhea. Physical Exam Vital signs: Vital Signs 05/07/18 12:00 05/07/18 16:00 05/07/18 20:36 Temperature 99.1 F 98.2 F 98.7 F Pulse Rate 79 78 80 Respiratory Rate 18 18 16 Blood Pressure 138/83 107/63 138/85 Pulse Oximetry 97 98 98 05/08/18 00:49 05/08/18 08:00 Temperature 98.6 F 98.5 F Pulse Rate 75 78 Respiratory Rate 18 17 Blood Pressure 118/71 137/60 Pulse Oximetry 97 94 L Intake & Output 05/07/18 05/08/18 05/08/18 18:59 06:59 18:59 Intake Total 100 / 100 980 / 980 Balance 100 / 100 980 / 980 Weight 58.7 kg Intake: IV 100 / 100 200 / 200 Ancef Inj 1,000 MG In NS Inj 100 / 100 200 / 200 100 ML @ 200 mls/hr IV.SIG Q8H DANYEL Rx#:[id number] Oral 780 / 780 Other: # Voids 2 # Bowel Movements 1 Narrative: Alert and awake Cardio: RRR Resp: CTAB Abd: soft, clean surgical wound. RIGHT inguinal area with surgical wound healing properly. RUE edema Results - Labs CBC & Chem 7: 04/28/18 08:02 05/03/18 06:11 - Procedures 04/27/18EGD with Dr. Jacinto showed gastritis, duodenitis, esophagitis, hiatal hernia DATE OF OPERATION: 05/04/2018 PREOPERATIVE DIAGNOSIS: Large right inguinal hernia with history of incarceration. POSTOPERATIVE DIAGNOSES: 1. Large right indirect inguinal hernia with history of incarceration. 2. Hydrocele of right testicle. PROCEDURES PERFORMED: 1. Right open inguinal hernia repair with mesh. 2. Repair of right hydrocele of the testicle. ANESTHESIA: General and local anesthetic. ATTENDING SURGEON: Fabrice Milian MD Assessment and Plan - Plan 57-year-old homeless male with history of alcohol abuse, tobacco use, presents with a 5 day history of intractable nausea/vomiting/diarrhea and a 2 day history of dizziness and falls. Abdominal pain/nausea/vomiting/diarrhea: Suspect gastroenteritis. +Fever with Tmax 102.2 -Abdominal CT with large bowel containing right inguinal hernia which contains descending colon and cecum, as well as distal ileum with associated bowel wall thickening; Hepatic steatosis, ascites, and upper abdominal varices identified. -Stool studies positive for Salmonella -Started on IV Cipro/Flagyl discontinued 05/05/18. -C.diff negative -04/27 s/p EGD showed gastritis, duodenitis, esophagitis, hiatal hernia -Symptoms improved, diet advanced, patient tolerating well Inguinal Hernia: CT as above shows large right inguinal hernia containing bowel - descending colon, cecum, and distal ileum with associated bowel wall thickening, with diagnosis of Unilateral Inguinal hernia, without obstruction or gangrene Status post inguinal hernia repair POD#4, not yet cleared by General Surgery. Dizziness/Syncope/Headache/Falls: suspect multifactorial with alcohol withdrawal and dehydration. -Give IVF hydration -Orthostatic vital signs unremarkable -working with PT no complaint. Alcohol Withdrawal: last drink 4 days prior to arrival. -Counseled on cessation -CIWA protocol - No signs of withdrawal. Tobacco Use: patient smokes 1 PPD -counseled on cessation -nicotine patch Right upper arm edema has Superficial vein thrombosis, Occlusive thrombus in the distal cephalic vein, for local measurements. DVT Prophylaxis: teds/SCDs No changes to anterior assessment. Code Status: Full code. Discussed Condition With: Patient and nurse. Discharge Planning: Once cleared by General surgery
--- NOTE | 2018-05-09 08:47 | P.PN ---
Subjective Interval history: This is a pleasant 57 y/o Male seen in house due to abdominal pain/nausea/ vomiting/diarrhea with Salmonella and right inguinal hernia. With Diagnosis of Large right indirect inguinal hernia with history of incarceration, Hydrocele of right testicle Status post Large right inguinal Hernia with history of incarceration, 05/04/[address] Fabrice Milian. 05/05: Seen the patient walking in the aisle with Physical Therapy, no complaint , General Surgery following recommended regular diet, POD#1, antibiotics for Salmonella, Athletic support for 10 to 14 days. 05/06: Stable in his bedroom, complaint of Pain on Right inguinal area, seen by General Surgery recommended to stay in house and probable discharge in the next two to three days. has constipation will have laxative at this time. 05/07: stable in his bedroom. 05/08: Patient comfortable in his bedroom, no complaint, awaiting final by General surgery for discharge 05/09: Seen in his bedroom, no nausea, vomit or diarrhea, not yet cleared by surgery for discharge. Physical Exam Vital signs: Vital Signs 05/08/18 12:00 05/08/18 16:00 05/08/18 20:50 Temperature 98.3 F 98.7 F 98.7 F Pulse Rate 77 76 79 Respiratory Rate 17 17 16 Blood Pressure 141/86 H 119/65 130/76 Pulse Oximetry 94 L 96 98 05/09/18 08:21 Temperature Pulse Rate Respiratory Rate 20 Blood Pressure Pulse Oximetry Intake & Output 05/08/18 05/09/18 05/09/18 18:59 06:59 18:59 Intake Total 1060 / 1060 980 / 980 Balance 1060 / 1060 980 / 980 Weight 57.9 kg Intake: IV 100 / 100 200 / 200 Ancef Inj 1,000 MG In NS Inj 100 / 100 200 / 200 100 ML @ 200 mls/hr IV.SIG Q8H DANYEL Rx#:[id number] Oral 960 / 960 780 / 780 Other: # Voids 4 3 Narrative: Alert and awake Cardio: RRR Resp: CTAB Abd: soft, clean surgical wound. RIGHT inguinal area with surgical wound healing properly. right testicle with edema and erythema. RUE edema Results - Labs CBC & Chem 7: 04/28/18 08:02 05/03/18 06:11 - Procedures 04/27/18EGD with Dr. Jacinto showed gastritis, duodenitis, esophagitis, hiatal hernia DATE OF OPERATION: 05/04/2018 PREOPERATIVE DIAGNOSIS: Large right inguinal hernia with history of incarceration. POSTOPERATIVE DIAGNOSES: 1. Large right indirect inguinal hernia with history of incarceration. 2. Hydrocele of right testicle. PROCEDURES PERFORMED: 1. Right open inguinal hernia repair with mesh. 2. Repair of right hydrocele of the testicle. ANESTHESIA: General and local anesthetic. ATTENDING SURGEON: Fabrice Milian MD Assessment and Plan - Plan 57-year-old homeless male with history of alcohol abuse, tobacco use, presents with a 5 day history of intractable nausea/vomiting/diarrhea and a 2 day history of dizziness and falls. Abdominal pain/nausea/vomiting/diarrhea: Suspect gastroenteritis. +Fever with Tmax 102.2 -Abdominal CT with large bowel containing right inguinal hernia which contains descending colon and cecum, as well as distal ileum with associated bowel wall thickening; Hepatic steatosis, ascites, and upper abdominal varices identified. -Stool studies positive for Salmonella -Started on IV Cipro/Flagyl discontinued 05/05/18. -C.diff negative -04/27 s/p EGD showed gastritis, duodenitis, esophagitis, hiatal hernia -Symptoms improved, diet advanced, patient tolerating well Inguinal Hernia: CT as above shows large right inguinal hernia containing bowel - descending colon, cecum, and distal ileum with associated bowel wall thickening, with diagnosis of Unilateral Inguinal hernia, without obstruction or gangrene Status post inguinal hernia repair POD#5, not yet cleared by General Surgery. Dizziness/Syncope/Headache/Falls: suspect multifactorial with alcohol withdrawal and dehydration. -Give IVF hydration -Orthostatic vital signs unremarkable -working with PT no complaint. Alcohol Withdrawal: last drink 4 days prior to arrival. -Counseled on cessation -CIWA protocol - No signs of withdrawal. Tobacco Use: patient smokes 1 PPD -counseled on cessation -nicotine patch Right upper arm edema has Superficial vein thrombosis, Occlusive thrombus in the distal cephalic vein, for local measurements. DVT Prophylaxis: teds/SCDs Code Status: Full code Discussed Condition With: patient, Nurse and General Surgery [employer] Discharge Planning: Once cleared by General surgery
--- NOTE | 2018-05-09 14:14 | P.PNGS ---
Subjective Interval history: Pain better controlled; worried about walking Physical Exam Vital signs: Vital Signs 05/08/18 16:00 05/08/18 20:50 05/09/18 08:00 Temperature 98.7 F 98.7 F 98.3 F Pulse Rate 76 79 74 Respiratory Rate 17 16 18 Blood Pressure 119/65 130/76 129/68 Pulse Oximetry 96 98 100 05/09/18 08:21 05/09/18 12:00 05/09/18 12:11 Temperature 98.2 F Pulse Rate 74 Respiratory Rate 20 18 20 Blood Pressure 121/73 Pulse Oximetry 96 Intake & Output 05/08/18 05/09/18 05/09/18 18:59 06:59 18:59 Intake Total 1060 / 1060 980 / 980 100 / 100 Balance 1060 / 1060 980 / 980 100 / 100 Weight 57.9 kg Intake: IV 100 / 100 200 / 200 100 / 100 Ancef Inj 1,000 MG In NS Inj 100 / 100 200 / 200 100 / 100 100 ML @ 200 mls/hr IV.SIG Q8H DANYEL Rx#:[id number] Oral 960 / 960 780 / 780 Other: # Voids 4 3 Narrative: Alert and awake Cardio: RRR Resp: CTAB Abd: lower RIGHT lower quadrant incision c/d/i with skin glue in place; swelling decreased No edema in extremities Assessment and Plan - Assessment (1) Right inguinal hernia Code(s): K40.90 - Unilateral inguinal hernia, without obstruction or gangrene, not specified as recurrent Status: Acute Plan: 57 year old male with reducible RIGHT inguinal hernia -POD5 RIGHT open hernia repair -Regular diet -OOB and mobilize -Athletic support for 10-14 days -Pain control -CM consult ---- will discusses options of homeless long term and/or bus pass -Likely home tomorrow
--- NOTE | 2018-05-10 11:07 | P.PNGS ---
Subjective Interval history: Resting in bed; wants a bigger size athletic supporter Physical Exam Vital signs: Vital Signs 05/09/18 12:00 05/09/18 12:11 05/09/18 14:43 Temperature 98.2 F Pulse Rate 74 Respiratory Rate 18 20 20 Blood Pressure 121/73 Pulse Oximetry 96 05/09/18 16:00 05/09/18 16:36 05/09/18 20:00 Temperature 98.3 F 97.9 F Pulse Rate 85 69 Respiratory Rate 18 20 18 Blood Pressure 129/75 129/76 Pulse Oximetry 96 96 05/10/18 00:00 05/10/18 07:56 05/10/18 08:00 Temperature 97.9 F 97.8 F Pulse Rate 64 69 Respiratory Rate 18 18 18 Blood Pressure 125/79 108/63 Pulse Oximetry 96 97 Intake & Output 05/09/18 05/10/18 05/10/18 18:59 06:59 18:59 Intake Total 1200 / 1200 100 / 100 100 / 100 Balance 1200 / 1200 100 / 100 100 / 100 Weight 57.2 kg Intake: IV 100 / 100 100 / 100 100 / 100 Ancef Inj 1,000 MG In NS Inj 100 / 100 100 / 100 100 / 100 100 ML @ 200 mls/hr IV.SIG Q8H DANYEL Rx#:[id number] Oral 1100 / 1100 Other: # Voids 8 2 Date of Last Bowel Movement 05/08/18 # Bowel Movements 2 Narrative: Alert and awake Cardio: RRR Resp: CTAB Abd: RLQ incision c/d/i mild scrotal bruising and swelling Assessment and Plan - Assessment (1) Right inguinal hernia Code(s): K40.90 - Unilateral inguinal hernia, without obstruction or gangrene, not specified as recurrent Status: Acute Plan: 57 year old male with reducible RIGHT inguinal hernia -POD6 RIGHT open hernia repair -Regular diet -OOB and mobilize -Athletic support for 10-14 days--discussed with DANIEL Mathew --patient needs a bigger size -Pain control -CM consult ---- will discusses options of homeless group home and/or bus pass
--- NOTE | 2018-05-10 12:21 | P.PN ---
Subjective Interval history: This is a pleasant 57 y/o Male seen in house due to abdominal pain/nausea/ vomiting/diarrhea with Salmonella and right inguinal hernia. With Diagnosis of Large right indirect inguinal hernia with history of incarceration, Hydrocele of right testicle Status post Large right inguinal Hernia with history of incarceration, 05/04/[address] Fabrice Milian. 05/05: Seen the patient walking in the aisle with Physical Therapy, no complaint , General Surgery following recommended regular diet, POD#1, antibiotics for Salmonella, Athletic support for 10 to 14 days. 05/06: Stable in his bedroom, complaint of Pain on Right inguinal area, seen by General Surgery recommended to stay in house and probable discharge in the next two to three days. has constipation will have laxative at this time. 05/07: stable in his bedroom. 05/08: Patient comfortable in his bedroom, no complaint, awaiting final by General surgery for discharge 05/09: Seen in his bedroom, not yet cleared by surgery for discharge. 05/10: Discussed with General Surgery MANUAL MACHINIST recommended for Regular diet, Athletic support for 10 to 14 days, needs bigger size, Pain control and okay to discharge Homeless half-way and bus pass. Physical Exam Vital signs: Vital Signs 05/09/18 14:43 05/09/18 16:00 05/09/18 16:36 Temperature 98.3 F Pulse Rate 85 Respiratory Rate 20 18 20 Blood Pressure 129/75 Pulse Oximetry 96 05/09/18 20:00 05/10/18 00:00 05/10/18 07:56 Temperature 97.9 F 97.9 F 97.8 F Pulse Rate 69 64 69 Respiratory Rate 18 18 18 Blood Pressure 129/76 125/79 108/63 Pulse Oximetry 96 96 97 05/10/18 08:00 Temperature Pulse Rate Respiratory Rate 18 Blood Pressure Pulse Oximetry Intake & Output 05/09/18 05/10/18 05/10/18 18:59 06:59 18:59 Intake Total 1200 / 1200 100 / 100 100 / 100 Balance 1200 / 1200 100 / 100 100 / 100 Weight 57.2 kg Intake: IV 100 / 100 100 / 100 100 / 100 Ancef Inj 1,000 MG In NS Inj 100 / 100 100 / 100 100 / 100 100 ML @ 200 mls/hr IV.SIG Q8H DANYEL Rx#:[id number] Oral 1100 / 1100 Other: # Voids 8 2 Date of Last Bowel Movement 05/08/18 # Bowel Movements 2 Narrative: Alert and awake Cardio: RRR Resp: CTAB Abd: soft, clean surgical wound. RIGHT inguinal area with surgical wound healing properly. right testicle with edema and erythema. RUE edema Results - Labs CBC & Chem 7: 04/28/18 08:02 05/03/18 06:11 - Procedures 04/27/18EGD with Dr. Jacinto showed gastritis, duodenitis, esophagitis, hiatal hernia DATE OF OPERATION: 05/04/2018 PREOPERATIVE DIAGNOSIS: Large right inguinal hernia with history of incarceration. POSTOPERATIVE DIAGNOSES: 1. Large right indirect inguinal hernia with history of incarceration. 2. Hydrocele of right testicle. PROCEDURES PERFORMED: 1. Right open inguinal hernia repair with mesh. 2. Repair of right hydrocele of the testicle. ANESTHESIA: General and local anesthetic. ATTENDING SURGEON: Fabrice Milian MD Assessment and Plan - Plan 57-year-old homeless male with history of alcohol abuse, tobacco use, presents with a 5 day history of intractable nausea/vomiting/diarrhea and a 2 day history of dizziness and falls. Abdominal pain/nausea/vomiting/diarrhea: Suspect gastroenteritis. +Fever with Tmax 102.2 -Abdominal CT with large bowel containing right inguinal hernia which contains descending colon and cecum, as well as distal ileum with associated bowel wall thickening; Hepatic steatosis, ascites, and upper abdominal varices identified. -Stool studies positive for Salmonella -Started on IV Cipro/Flagyl discontinued 05/05/18. -C.diff negative -04/27 s/p EGD showed gastritis, duodenitis, esophagitis, hiatal hernia -Symptoms improved, diet advanced, patient tolerating well, okay to discharge by General Surgery after given bus pass and bigger athletic support. Inguinal Hernia: CT as above shows large right inguinal hernia containing bowel - descending colon, cecum, and distal ileum with associated bowel wall thickening, with diagnosis of Unilateral Inguinal hernia, without obstruction or gangrene Status post inguinal hernia repair POD#6, clear by General surgery Dizziness/Syncope/Headache/Falls: suspect multifactorial with alcohol withdrawal and dehydration. -Give IVF hydration -Orthostatic vital signs unremarkable -working with PT no complaint. Alcohol Withdrawal: last drink 4 days prior to arrival. -Counseled on cessation -CIWA protocol - No signs of withdrawal. Tobacco Use: patient smokes 1 PPD -counseled on cessation -nicotine patch Right upper arm edema has Superficial vein thrombosis, Occlusive thrombus in the distal cephalic vein, for local measurements. DVT Prophylaxis: teds/SCDs Code Status: Full code. Discussed Condition With: Patient and nurse Miss Mathew and General surgery MANUAL MACHINIST Discharge Planning: Once cleared by General surgery
--- NOTE | 2018-05-10 12:25 | P.DS ---
Date of admission: 04/28/18 16:52 Primary care physician: UNKNOWN Attending physician on discharge: Chase Gonzales Anticipated date of discharge: 05/10/18 Brief History from admission: 57-year-old homeless male with history of alcohol abuse, tobacco use, presents with a 5 day history of intractable nausea/vomiting/diarrhea and a 2 day history of dizziness and falls. Patient reports that he was recently incarcerated until April 12. He states while in longterm he was taking a lot of Motrin, at least 3 tablets a day. He was doing well after he was released from longterm on 04/12 until last 04/21, he started to develop nausea and vomiting. He reports at least 5 episodes of vomiting daily, emesis described as non-bloody and bilious. He then developed watery nonbloody diarrhea with 5 10 episodes daily. He reports subjective fevers, chills, and sweats. He reports mild periumbilical nonradiating crampy abdominal pain. He has been unable to keep down any liquids or foods. Two days ago he started to develop intractable dizziness with a global headache and blurred vision. He states he has fallen multiple times because of the dizziness. He got a ride to the ER last night, and was discharged home. He states shortly after he was released from the hospital, he suffered a syncopal event in the parking lot. He states he remembers feeling very dizzy and then fell to the ground. He believes he was only out for a few seconds. The patient admits to chronic alcohol abuse. He reports drinking at least two 25 ounce beers daily, and maybe more on certain days. He states he was treated for alcohol withdrawal while he was in longterm. He then started drinking again after he was released, but now has not had a drink in 4 days. The patient admits to feeling slightly tremulous. He denies any other medical complaints including no chest pain, palpitations, shortness of breath, or urinary complaints. DS: Diagnosis - Discharge Diagnosis (1) Chest pain Status: Acute (2) Dizziness Status: Acute (3) Increased nausea and vomiting Status: Acute (4) Right inguinal hernia Status: Acute DS: Medications - Discharge Medications Prescriptions: hydrocodone-acetaminophen 1 tab PO Q4H PRN #14 tab PRN Reason: Pain DS: Summary Hospital Course: This is a pleasant 57 y/o Male seen in house due to abdominal pain/nausea/ vomiting/diarrhea with Salmonella and right inguinal hernia. With Diagnosis of Large right indirect inguinal hernia with history of incarceration, Hydrocele of right testicle Status post Large right inguinal Hernia with history of incarceration, 05/04/[address] Fabrice Milian. 05/05: Seen the patient walking in the aisle with Physical Therapy, no complaint , General Surgery following recommended regular diet, POD#1, antibiotics for Salmonella, Athletic support for 10 to 14 days. 05/06: Stable in his bedroom, complaint of Pain on Right inguinal area, seen by General Surgery recommended to stay in house and probable discharge in the next two to three days. has constipation will have laxative at this time. 05/07: stable in his bedroom. 05/08: Patient comfortable in his bedroom, no complaint, awaiting final by General surgery for discharge 05/09: Seen in his bedroom, not yet cleared by surgery for discharge. 05/10: Discussed with General Surgery HEMATOLOGIST ONCOLOGIST recommended for Regular diet, Athletic support for 10 to 14 days, needs bigger size, Pain control and okay to discharge Homeless long term and bus pass. - Procedures 04/27/18EGD with Dr. Jacinto showed gastritis, duodenitis, esophagitis, hiatal hernia DATE OF OPERATION: 05/04/2018 PREOPERATIVE DIAGNOSIS: Large right inguinal hernia with history of incarceration. POSTOPERATIVE DIAGNOSES: 1. Large right indirect inguinal hernia with history of incarceration. 2. Hydrocele of right testicle. PROCEDURES PERFORMED: 1. Right open inguinal hernia repair with mesh. 2. Repair of right hydrocele of the testicle. ANESTHESIA: General and local anesthetic. ATTENDING SURGEON: Fabrice Milian MD Assessment and Plan - Plan 57-year-old homeless male with history of alcohol abuse, tobacco use, presents with a 5 day history of intractable nausea/vomiting/diarrhea and a 2 day history of dizziness and falls. Abdominal pain/nausea/vomiting/diarrhea: Suspect gastroenteritis. +Fever with Tmax 102.2 -Abdominal CT with large bowel containing right inguinal hernia which contains descending colon and cecum, as well as distal ileum with associated bowel wall thickening; Hepatic steatosis, ascites, and upper abdominal varices identified. -Stool studies positive for Salmonella -Started on IV Cipro/Flagyl discontinued 05/05/18. -C.diff negative -04/27 s/p EGD showed gastritis, duodenitis, esophagitis, hiatal hernia -Symptoms improved, diet advanced, patient tolerating well, okay to discharge by General Surgery after given bus pass and bigger athletic support. Inguinal Hernia: CT as above shows large right inguinal hernia containing bowel - descending colon, cecum, and distal ileum with associated bowel wall thickening, with diagnosis of Unilateral Inguinal hernia, without obstruction or gangrene Status post inguinal hernia repair POD#6, clear by General surgery Dizziness/Syncope/Headache/Falls: suspect multifactorial with alcohol withdrawal and dehydration. -Give IVF hydration -Orthostatic vital signs unremarkable -working with PT no complaint. Alcohol Withdrawal: last drink 4 days prior to arrival. -Counseled on cessation -CIWA protocol - No signs of withdrawal. Tobacco Use: patient smokes 1 PPD -counseled on cessation -nicotine patch Right upper arm edema has Superficial vein thrombosis, Occlusive thrombus in the distal cephalic vein, for local measurements. DVT Prophylaxis: teds/SCDs Code Status: Full code. Discussed Condition With: Patient and nurse Miss Mathew and General surgery HEMATOLOGIST ONCOLOGIST Discharge Planning: Once cleared by General surgery - Time Spent with Patient Total time spent providing and/or coordinating discharge services: Greater than 30 minutes - Quality: VTE Deep Vein Thrombosis/Pulmonary Embolism Present on Admission: No Exam Vital signs: Vital Signs 05/09/18 14:43 05/09/18 16:00 05/09/18 16:36 Temperature 98.3 F Pulse Rate 85 Respiratory Rate 20 18 20 Blood Pressure 129/75 Pulse Oximetry 96 05/09/18 20:00 05/10/18 00:00 05/10/18 07:56 Temperature 97.9 F 97.9 F 97.8 F Pulse Rate 69 64 69 Respiratory Rate 18 18 18 Blood Pressure 129/76 125/79 108/63 Pulse Oximetry 96 96 97 05/10/18 08:00 05/10/18 12:00 Temperature 98.8 F Pulse Rate 72 Respiratory Rate 18 18 Blood Pressure 114/69 Pulse Oximetry 96 Intake & Output 05/09/18 05/10/18 05/10/18 18:59 06:59 18:59 Intake Total 1200 / 1200 100 / 100 100 / 100 Balance 1200 / 1200 100 / 100 100 / 100 Weight 57.2 kg Intake: IV 100 / 100 100 / 100 100 / 100 Ancef Inj 1,000 MG In NS Inj 100 / 100 100 / 100 100 / 100 100 ML @ 200 mls/hr IV.SIG Q8H DANYEL Rx#:[id number] Oral 1100 / 1100 Other: # Voids 8 2 Date of Last Bowel Movement 05/08/18 # Bowel Movements 2 Narrative: Alert and awake Cardio: RRR Resp: CTAB Abd: soft, clean surgical wound. RIGHT inguinal area with surgical wound healing properly. right testicle with edema and erythema. RUE edema Results Procedures completed during hospitalization: 04/27/18EGD with Dr. Jacinto showed gastritis, duodenitis, esophagitis, hiatal hernia DATE OF OPERATION: 05/04/2018 PREOPERATIVE DIAGNOSIS: Large right inguinal hernia with history of incarceration. POSTOPERATIVE DIAGNOSES: 1. Large right indirect inguinal hernia with history of incarceration. 2. Hydrocele of right testicle. PROCEDURES PERFORMED: 1. Right open inguinal hernia repair with mesh. 2. Repair of right hydrocele of the testicle. ANESTHESIA: General and local anesthetic. ATTENDING SURGEON: Fabrice Milian MD - Impressions ITS Impressions Abdomen/Pelvis CT 04/25/18 00:00 CONCLUSION: 1. There is a large bowel containing right inguinal hernia which contains descending colon and cecum, as well as distal ileum. There is associated bowel wall thickening. 2. Hepatic steatosis, ascites, and upper abdominal varices identified. 3. Calcified splenic granulomas. Chest X-Ray 04/25/18 08:02 CONCLUSION: 1. Minimal atelectatic changes above the left hemidiaphragm. 2. Subacute to chronic appearing fractures through the lateral aspect of the left sixth and seventh ribs with callus formation. 3. Otherwise negative. No acute cardiopulmonary process Head CT 04/25/18 08:02 CONCLUSION: Negative exam. No change from prior. Barium Enema w/ Air Contrast, therapeutic 04/27/18 00:00 CONCLUSION: Mild diverticulosis. Venous Doppler Study 05/02/18 00:00 CONCLUSION: 1. No DVT. 2. SVT with occlusive thrombus in the distal cephalic vein. This appears to be the site of a previous IV. Discharge Plan - Discharge Disposition Patient Disposition: 01 Discharge Home - Discharge Condition Condition: Stable - Discharge Order Discharge Orders: Discharge Order (Routine); Ordered 05/10/18 Ordered By: Chase Gonzales - Discharge Details Anticipated Discharge Date: 05/10/18 Discharge Comment: Follow up with PCP in three days. - Physicians Team Primary Care Provider: UNKNOWN, Attending Provider: Chase Gonzales Other Providers: Sil Jacinto MD ; Fabrice Milian MD ; Surgeons,[facility]
== END 2018-05-10 14:53 | disposition home or self-care (01) ==
LOC: NEPE 06:16 → NEDA 06:16 → NEPFCDU 12:16 → N07 05-01 20:43
PROVIDERS: ADMIT Internal Medicine; ATTEND Internal Medicine
PROC: PANENDO (2018-04-27 10:49)